=== PATIENT | male | born 1960 | race Caucasian/White ===

== ENCOUNTER 2017-09-25 17:44 | Inpatient (IN) | payer OTHER ==
[~2017-09-25] VITALS: Ht 200.7 cm; Wt 201.4 kg
--- NOTE | ~2017-09-25 | EKG ---
[place] [address] ELECTROCARDIOGRAM REPORT Name: BARNEY JONES Room: [address] IN [facility]#: [id number] Admission: 09/25/17 Attend Phys: Mickey Sepulveda Discharge: 09/27/17 Date of : 64 Report #: [id number] THIS REPORT FOR: //name// [facility] ED Test Date: 2017-09-30 Test Time: 14:40:43 Pat Name: BARNEY JONES Department: Room: [facility] Gender: M Parts Remover: HEBERT : 1960 Requested By: Jos Godinez Order Number: [id number] MD: Measurements Intervals [place] Rate: 158 P: [place]: QRS: 32 QRSD: 84 T: 190 QT: 266 QTc: 432 Interpretive Statements Atrial fibrillation Repolarization abnormality, prob rate related Compared to ECG 09/27/2017 08:06:10 Early repolarization now present T-wave abnormality no longer present Prolonged QT interval no longer present [email or web address] By: 1440 1440 Epiphany Epiphany, /EPI
[2017-09-25 17:47] VITALS: BP 177/129
[2017-09-25 18:03] LABS: ABSOLUTE BASOPHILS 0.1 thou/uL (0.0-0.2); ABSOLUTE LYMPHOCYTES 1.2 thou/uL (0.8-5.3); ABSOLUTE MONOCYTES 0.8 thou/uL (0.0-1.2); ABSOLUTE NEUTROPHILS 6.4 thou/uL (1.6-8.1); BASOPHILS 0.6 %; EOSINOPHILS 0.6 %; HEMATOCRIT 39.1 % (42.0-52.0); HEMOGLOBIN 12.2 gm/dL (14.0-18.0); LYMPHOCYTES 14.3 %; MCH 28.4 pg (26.0-34.0); MCHC 31.2 g/dL (28.0-37.0); MCV 91.1 fL (80.0-100.0); MONOCYTES 8.9 %; MPV 9.7 fl. (7.2-11.1); NUCLEATED RBCS 1 /100WBC; PLATELET COUNT* 240 thou/uL (150-400); POLYS 75.6 %; RBC 4.29 mil/uL (4.50-6.00); RDW-CV 18.4 % (10.5-14.5); WBC 8.5 thou/uL (4.0-11.0)
[2017-09-25 18:11] LABS: APTT 25.2 Seconds (25.0-31.3); INR 1.4; PROTIME 13.7 Seconds (9.20-11.50)
[2017-09-25 18:14] LABS: CALCIUM 8.2 mg/dL (8.5-10.1); POTASSIUM 4.1 mmol/L (3.5-5.1)
[2017-09-25 18:37] LABS: ALBUMIN 3.2 g/dL (3.4-5.0); CK-MB MASS 1.6 ng/mL (<0.5-3.6); MAGNESIUM 1.7 mg/dL (1.8-2.4); TOTAL BILIRUBIN 0.6 mg/dL (<0.1-1.0); TOTAL PROTEIN 7.7 g/dL (6.4-8.2); TROPONIN-I LEVEL 0.07 ng/mL (<0.06)
[2017-09-25 19:25] VITALS: BP 129/80
[2017-09-25 20:15] VITALS: BP 144/78
[2017-09-25 23:41] VITALS: BP 111/76; BP 126/82
[2017-09-26 03:44] VITALS: BP 127/80
[2017-09-26 07:53] VITALS: BP 132/82
[2017-09-26 09:38] LABS: ANION GAP 5 mmol/L (7-16); BUN 23 mg/dL (7-18); CALCIUM 7.8 mg/dL (8.5-10.1); CHLORIDE 101 mmol/L (98-107); CHOLESTEROL 88 mg/dL (<200); CO2 30 mmol/L (21-32); CREATININE 1.7 mg/dL (0.6-1.3); GLUCOSE 97 mg/dL (70-99); HDL CHOLESTEROL 23 mg/dL (>40); LDL CHOLESTEROL 55 mg/dL (<100); MAGNESIUM 1.5 mg/dL (1.8-2.4); POTASSIUM 3.8 mmol/L (3.5-5.1); SODIUM 136 mmol/L (136-145); TC:HDL 3.8 Ratio (Not establshd); TRIGLYCERIDE 53 mg/dL (<150); VLDL 11 mg/dL (<40)
[2017-09-26 09:45] LABS: SERUM ASSESSMENT Clear
[2017-09-26 11:01] LABS: URINE BILIRUBIN NEGATIVE (Negative); URINE BLOOD NEGATIVE (Negative); URINE CLARITY CLEAR; URINE COLOR YELLOW; URINE GLUCOSE-RANDOM NEGATIVE (Negative); URINE KETONES NEGATIVE (Negative); URINE LEUKOCYTES-REFLEX NEGATIVE (Negative); URINE NITRITE-REFLEX NEGATIVE (Negative); URINE PROTEIN TRACE (Negative); URINE SPECIFIC GRAVITY 1.015 (1.005-1.030); URINE UROBILINOGEN 0.2 E.U./dl (0.2-1.0)
--- NOTE | 2017-09-26 11:05 | EKG ---
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 09/26/17 1105 1750 1750 Prince Dela Cruz MD, FACC /EPI
[2017-09-26 11:09] LABS: URINE POTASSIUM-RANDOM 19.2 mmol/L
--- NOTE | 2017-09-26 11:10 | EKG ---
[place] [address] ELECTROCARDIOGRAM REPORT Name: BARNEY JONES Room: [address] ADM IN .R.#: [id number] Admission: 09/25/17 Attend Phys: Mickey Sepulveda Discharge: Date of : 64 Report #: [id number] THIS REPORT FOR: //name// [facility] Test Date: 2017-09-26 Test Time: 00:08:57 Pat Name: BARNEY JONES Department: Room: [address] Gender: M Nurse General Duty: : 1960 Requested By: Hemal Alamo Order Number: [id number] MD: Prince Dela Cruz Measurements Intervals [place] Rate: 90 P: NM: QRS: 63 QRSD: 81 T: 102 QT: 407 QTc: 498 Interpretive Statements Atrial fibrillation Nonspecific T abnormalities, lateral leads Electronically Signed On 09-26-2017 11:10:39 CDT by Prince Dela Cruz [email or web address] <ELECTRONICALLY SIGNED> By: Prince Dela Cruz MD, [facility] 09/26/17 1110 0008 0008 Prince Dela Cruz MD, FACC /EPI
--- NOTE | 2017-09-26 11:13 | EKG ---
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
[2017-09-26 11:29] VITALS: BP 145/94
--- NOTE | 2017-09-26 13:15 | 2DMMODE ---
[place] [address] 2 D/M-MODE ECHOCARDIOGRAM Name: BARNEY JONES Room: [address] IN [facility]#: [id number] Admission: 09/25/17 Attend Phys: Yosef Frances Discharge: Date of : 64 Date of Service: 09/26/17 1315 Report #: [id number] THIS REPORT FOR: //name// APPROVED REPORT Study performed: 09/26/2017 10:54:33 EXAM: Comprehensive 2D, Doppler, and color-flow Echocardiogram Patient Location: In-Patient Room #: [facility] Status: routine BSA: 3.20 HR: 93 bpm BP: 132/82 mmHg Rhythm: Atrial Fibrillation Other Information Technically limited study due to body habitus, poor endocardial definition. Indications Atrial Fibrillation Echo Enhancing Agent Indication: Endocardial border delineation Agent(s) / Amount(s) Used: Optison 3 cc 2D Dimensions LVEF(%): 43.25 (>50%) IVSd: 13.45 (7-11mm) LVOT Diam: 21.86 (18-24mm) LVDd: 60.39 mm PWd: 12.29 (7-11mm) Ascending Ao: 36.53 (22-36mm) LVDs: 47.26 (25-40mm) Aortic Root: 33.16 mm Singer's LVEF: 43.25 % Volumes Left Atrial Volume (Systole) LA ESV Index: 51.70 mL/m2 Aortic Valve AoV Peak Tru.: 1.66 m/s AO Peak Gr.: 11.01 mmHg LVOT Max P.93 mmHg AO Mean Gr.: 6.46 mmHg LVOT Mean P.44 mmHg LVOT Max V: 1.22 m/[place] [address] 2 D/M-MODE ECHOCARDIOGRAM Name: BARNEY JONES Room: [address] IN ..#: [id number] Admission: 09/25/17 Attend Phys: Yosef Frances Discharge: Date of : 64 Date of Service: 09/26/17 1315 Report #: [id number] AO V2 VTI: 24.87 cm LVOT Mean V: 0.87 m/s RADHA (VTI): 2.90 cm2 LVOT V1 VTI: 19.23 cm Mitral Valve MV Decel. Time: 133.19 ms MV PHT: 38.62 ms MVA (PHT): 5.70 cm2 TDI Medial E' Tru.: 0.15 m/s Lateral E' Tru.: 0.14 m/s Pulmonary Valve PV Peak Tru.: 1.10 m/s PV Peak Gr.: 4.84 mmHg Tricuspid Valve RAP Estimate: 5.00 mmHg TR Peak Gr.: 29.98 mmHg RVSP: 34.98 mmHg PA Pressure: 34.98 mmHg Left Ventricle The left ventricle is normal size. There is global hypokinesis of the left ventricle. Mild concentric left ventricular hypertrophy. Left ventricular systolic function is mildly decreased. LVEF is 40-45%. This study is not technically sufficient to allow evaluation of the LV diastolic function due to atrial fibrillation. Right Ventricle The right ventricle is normal size. The right ventricular systolic function is normal. Atria Left atrium is severely dilated. Right atrium is mildly dilated. Aortic Valve The aortic valve is normal in structure. Mild aortic regurgitation. There is no aortic valvular stenosis. Mitral Valve The mitral valve is normal in structure. Mild mitral regurgitation. No evidence of mitral valve stenosis. Tricuspid Valve The tricuspid valve is normal in structure. Mild tricuspid regurgitation. estimated pa pressure 50 [place] [address] 2 D/M-MODE ECHOCARDIOGRAM Name: ROBERTBARNEY Quintana Room: [address] IN [facility]#: [id number] Admission: 09/25/17 Attend Phys: Yosef Frances Discharge: Date of : 64 Date of Service: 09/26/17 1315 Report #: [id number] Pulmonic Valve The pulmonary valve is normal in structure. There is no pulmonic valvular regurgitation. Great Vessels The aortic root is normal in size. IVC is dilated and collapses <50% with inspiration. Pericardium There is no pericardial effusion. <Conclusion> Mild concentric left ventricular hypertrophy. LVEF is 40-45%. Left atrium is severely dilated. Mild aortic regurgitation. Mild mitral regurgitation. Mild tricuspid regurgitation. estimated pa pressure 50 mm Hg <ELECTRONICALLY SIGNED> By: Prince Dela Cruz MD, FACC 09/26/17 1315 14 14 Prince Dela Cruz MD, FACC /INF
[2017-09-26 15:29] VITALS: BP 118/92
--- NOTE | 2017-09-26 17:14 | CON ---
[address] [address] CONSULTATION Name: BARNEY JONES Room: [address] IN .R.#: [id number] Admission: 09/25/17 Attend Phys: Mickey Sepulveda Discharge: Date of : 64 Report #: [id number] THIS REPORT FOR: //name// CC: MARBIN physician/PCP Yosef Frances DATE OF SERVICE: 09/26/2017 HISTORY OF PRESENT ILLNESS: The patient is a 57-year-old single white male who I was asked to see in the hospital today after he was noted to be in atrial fibrillation. The history was obtained from the patient. There were no old records available. The patient previously went to [facility], but has not been there for years. He has a history of hypertension, but ran out of his lisinopril several years ago. He is not very active because of his large size. He is 6 feet 7 inches, weighs 445 pounds. 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 He is not working at this time. He was doing well until the past few days, he has felt somewhat lightheaded. He has had worsening edema and shortness of breath. He notes yesterday he felt some heaviness in his chest. There was no radiation of the pain. He felt short of breath and diaphoretic, but no nausea. He has been coughing. He has had worsening edema. He did note his heart beating irregular. He finally came to the emergency room last night. He was noted to be in atrial fibrillation. He was started on IV Cardizem. I was asked to see him for further evaluation and treatment. He has had no syncope. PAST MEDICAL HISTORY: He has had no major surgical procedures. He has no history of diabetes or hyperlipidemia. MEDICATIONS: He is currently on no medications. ALLERGIES: He has no known drug allergies. FAMILY HISTORY: Heart disease runs in the family. SOCIAL HISTORY: He is in the past, but he is currently , he does have 5 children, lives in [place], [place] with some friends. He unfortunately has no medical insurance. He does not smoke cigarettes, rarely drinks alcohol. He does smoke marijuana occasionally. REVIEW OF SYSTEMS: He has had no history of stroke. He does snore at night and has daytime somnolence. He has no history of peptic ulcer disease, liver disease, kidney disease, cancer, or chronic skin condition. He does wear glasses. He has a history of depression and suicide attempt in the past. PHYSICAL EXAMINATION: GENERAL: Revealed a large middle-aged male, [place] [address] CONSULTATION Name: BARNEY JONES Room: [address] IN .R.#: [id number] Admission: 09/25/17 Attend Phys: Mickey Sepulveda Discharge: Date of : 64 Report #: [id number] VITAL SIGNS: He had a blood pressure of 130/80, pulse is 110, he is afebrile, respirations are unlabored. HEENT: He is anicteric. Conjunctivae are pink. Mucous members moist. NECK: Veins difficult to assess due to obesity. CHEST: Clear to auscultation. HEART: Irregular rhythm. No rub or murmur. ABDOMEN: Obese. EXTREMITIES: Had pitting edema to the mid tibial area. Dorsalis pedis pulse cannot be palpated. SKIN: Cool and dry. NEUROLOGIC: Nonfocal. His ECG showed an atrial fibrillation with a rapid ventricular response, nonspecific ST-segment changes. On the monitor last night, he did have a 9 beat run of a wide complex tachycardia suggesting aberrant conduction. His x-rays, he had a portable chest x-ray that showed cardiomegaly, tortuous aorta. His lab work, sodium 138, BUN 27, creatinine was 2. His liver function studies were normal. Troponin 0.07. BNP 5975. White blood cell count 8.5 and hemoglobin 12.2. IMPRESSION AND RECOMMENDATIONS: 1. Atrial fibrillation. I would aim for rate control, diltiazem and a beta evens. I would not recommend attempts at cardioversion. I would consider anticoagulation. 2. Hypertension. I would recommend a beta evens. 3. Morbid obesity. 4. Sleep apnea. 5. Chronic kidney disease. 6. History of depression. <ELECTRONICALLY SIGNED> By: Prince Dela Cruz MD, [facility] 09/26/17 1714 0911 0952Daaspne Dela Cruz MD, FAC /nt
[2017-09-26 19:30] VITALS: BP 145/86
[2017-09-27] VITALS: BP 118/72
[2017-09-27 02:06] LABS: GLYCOHEMOGLOBIN (HGB A1C) 5.4 % (4.8-5.6)
[2017-09-27 04:00] VITALS: BP 122/72
[2017-09-27 07:37] LABS: CALCIUM 7.8 mg/dL (8.5-10.1); CREATININE 1.4 mg/dL (0.6-1.3); MAGNESIUM 1.6 mg/dL (1.8-2.4); POTASSIUM 4.6 mmol/L (3.5-5.1)
[2017-09-27 08:15] VITALS: BP 106/79
[2017-09-27] MEDS ORDERED: LISINOPRIL5 MG PO (12:02)
[2017-09-27] MEDS ORDERED: LOPRESSOR50 PO (12:02)
[2017-09-27] MEDS ORDERED: ELIQUIS5 MG PO (12:02)
[2017-09-27] MEDS ORDERED: LASIX 40 MG TAB40 M1 PO (12:02)
[2017-09-27] MEDS ORDERED: ASPIR 8181 MG PO (12:03)
--- NOTE | 2017-09-27 12:07 | EKG ---
[place] [address] ELECTROCARDIOGRAM REPORT Name: BARNEY JONES Room: [address] ADM IN M.R.#: [id number] Admission: 09/25/17 Attend Phys: Mickey Sepulveda Discharge: Date of : 64 Report #: [id number] THIS REPORT FOR: //name// [facility] Test Date: 2017-09-27 Test Time: 08:06:10 Pat Name: BARNEY JONES Department: Room: [address] Gender: M Lidder: : 1960 Requested By: Prince Dela Cruz Order Number: [id number] Reading MD: Stanley Mai Measurements Intervals [place] Rate: 86 P: [place]: QRS: 40 QRSD: 94 T: QT: 427 QTc: 511 Interpretive Statements Atrial fibrillation Low voltage, precordial leads Nonspecific T abnormalities, lateral leads Prolonged QT interval Compared to ECG 09/26/2017 06:58:54 Low QRS voltage now present Myocardial infarct finding no longer present T-wave abnormality still present Electronically Signed On 09-27-2017 12:07:22 CDT by Stanley Mai [email or web address] <ELECTRONICALLY SIGNED> By: Stanley Mai MD, FAC 09/27/17 1207 0806 0806 Stanley Mai MD, [facility] /EPI
[2017-09-27 12:13] VITALS: BP 132/89
[2017-09-27 14:29] VITALS: BP 132/89
== END 2017-09-27 15:57 | disposition home or self-care (01) | DRG 291 ==
LOC: M.ERS 17:44 → M.2W 18:22 → M.TBA-ER 18:22 → M.2W 20:15
PROVIDERS: Family Medicine; Internal Medicine; ADMIT Internal Medicine
DX: I13.0 Hypertensive heart and chronic kidney disease with heart failure and stage 1 through stage 4 chronic kidney disease, or unspecified chronic kidney disease (principal); I50.43 Acute on chronic combined systolic (congestive) and diastolic (congestive) heart failure; Z68.43 Body mass index [BMI] 50.0-59.9, adult; I48.91 Unspecified atrial fibrillation; I70.0 Atherosclerosis of aorta; F32.9 Major depressive disorder, single episode, unspecified; I25.10 Atherosclerotic heart disease of native coronary artery without angina pectoris; G47.33 Obstructive sleep apnea (adult) (pediatric); I73.9 Peripheral vascular disease, unspecified; E88.81 Metabolic syndrome and other insulin resistance; N18.3 Chronic kidney disease, stage 3 (moderate); E66.01 Morbid (severe) obesity due to excess calories; I25.2 Old myocardial infarction; Z79.01 Long term (current) use of anticoagulants; Z79.899 Other long term (current) drug therapy; Z82.49 Family history of ischemic heart disease and other diseases of the circulatory system

== ENCOUNTER 2017-09-30 14:36 | Inpatient (IN) | payer OTHER ==
[~2017-09-30] VITALS: Ht 200.7 cm; Wt 200.9 kg
[~2017-09-30 14:36] MED LIST: ASPIR 8181 MG PO; ELIQUIS5 MG PO; LASIX 40 MG TAB40 M1 PO; LISINOPRIL5 MG PO; LOPRESSOR50 PO
[2017-09-30 15:00] LABS: HEMOGLOBIN 11.6 gm/dL (14.0-18.0); MCH 29.1 pg (26.0-34.0); MCHC 32.3 g/dL (28.0-37.0); MPV 9.2 fl. (7.2-11.1); NUCLEATED RBCS 0 /100WBC; PLATELET COUNT* 200 thou/uL (150-400); RDW-CV 18.5 % (10.5-14.5)
[2017-09-30 15:11] LABS: INR 1.2; PROTIME 11.4 Seconds (9.20-11.50)
[2017-09-30 15:12] LABS: ANION GAP 5 mmol/L (7-16); BUN 14 mg/dL (7-18); CALCIUM 7.7 mg/dL (8.5-10.1); CHLORIDE 101 mmol/L (98-107); CO2 36 mmol/L (21-32); CREATININE 1.4 mg/dL (0.6-1.3); GLUCOSE 143 mg/dL (70-99); POTASSIUM 3.4 mmol/L (3.5-5.1); SODIUM 142 mmol/L (136-145)
[2017-09-30 15:28] LABS: ALBUMIN 3.1 g/dL (3.4-5.0); ALKALINE PHOSPHATASE 95 U/L (46-116); LIPASE 75 U/L (73-393); NT-PRO BRAIN NAT PEPTIDE 9223 pg/mL (<300); SGOT 24 U/L (15-37); SGPT 33 U/L (30-65); TOTAL BILIRUBIN 0.6 mg/dL (<0.1-1.0); TOTAL PROTEIN 7.4 g/dL (6.4-8.2); TROPONIN-I LEVEL <0.06 ng/mL (<0.06)
[2017-09-30 15:38] LABS: ABSOLUTE EOSINOPHILS 0.1 thou/uL (0.0-0.7); ABSOLUTE LYMPHOCYTES 0.4 thou/uL (0.8-5.3); ABSOLUTE MONOCYTES 0.3 thou/uL (0.0-1.2); ABSOLUTE NEUTROPHILS 6.3 thou/uL (1.6-8.1)
[2017-09-30 15:39] LABS: ANISOCYTOSIS 1+; PLATELET ESTIMATE ADEQUATE
[2017-09-30 18:41] VITALS: BP 166/125
--- NOTE | 2017-09-30 18:44 | NUR ---
GOT REPORT FROM CRISTINA BLOCK IN ED. PT TO BE TRANSFERED UP TO 203. WILL SETTLE PT WHEN HE ARRIVES.
[2017-09-30 18:57] VITALS: BP 144/111
--- NOTE | 2017-09-30 19:09 | NUR ---
PT ARRIVED ON UNIT, VS CHARTED, PT PROVIDED WITH URINAL, FALL CONTRACT SIGNED AND PT TOLD TO CALL OUT FOR AMBULATION NEEDS. CARDIZEM RUNNING AT 15MG/HR. WILL GIVE REPORT TO NOC SHIFT
[2017-09-30 20:58] VITALS: BP 143/61
[2017-10-01] VITALS: BP 128/86
--- NOTE | 2017-10-01 02:23 | NUR ---
ASSUMED CARE OF PT AT 1900. PT IS ALERT AND ORIENED. VSS. NO COMPLAINTS OF PAIN. PT IS UP AT JOSY. PT REMAINS IN A FIB WITH A RATE OF 80 TO 100. PT IS ON 20MG/HR OF CARDIZEM. PT IS SLEEPING QUIETLY IN BED. RESPIRATIONS ARE EVEN AND NONLABORED. WILL CONTINUE TO MONITOR PT.
[2017-10-01 03:55] VITALS: BP 183/106
[2017-10-01 08:00] VITALS: BP 102/65
--- NOTE | 2017-10-01 10:45 | NUR ---
ASSUMED CARE OF PT AT 0730. PT REMAINS A&O CALM AND COOPERATIVE. PT VSS AND TRACING A FIB ON THE MONITOR. PT HAS NO C/O PAIN OR DISTRESS AND IS UP AD JOSY IN HIS ROOM VOIDING PER THE TOILET. CARDIZEM DRIP RUNNING AT 20/HR. PT CURRENTLY RESTING IN BED WATCHING TV. NURSIGN WILL CONTINUE TO MONITOR.
[2017-10-01 11:10] VITALS: BP 104/57
--- NOTE | 2017-10-01 15:32 | NUR ---
PT SWITCHED FROM IV TO PO CARDIZEM. PT HAS NO C/O PAIN OR DISCOMFORT AT THIS TIME.
[2017-10-01 15:37] VITALS: BP 123/66
--- NOTE | 2017-10-01 15:53 | NUR ---
Pt is A&O. Resides at home with a friend. Independent with ADLs. No DME. No hx of HH or SNF. Pt recently dc on 09/26/17. Pt states that he thinks he will dc with MAEGAN Zaidi to provide Dyan copay card (30 days free). Following through dc
--- NOTE | 2017-10-01 16:29 | NUR ---
RECEIVED REPORT FROM WILMER AND ASSUMED CARE OF PT @ 1600.THIS NURSE ASSESSED PT AND REVIEWED CHARTING AND AGREES WITH PREVIOUS NURSE.PT LEFT RESTING IN BED WITH CALL LIGHT WITHIN REACH.WILL CONTINUE TO MONITOR.
--- NOTE | 2017-10-01 18:19 | NUR ---
VSS,CARDIAC MONITORING IN PLACE WITH NO CHANGES.REMAINS ON 1-2L O2 NC.PT PROGRESSING TOWARDS GOALS.NO C/O PAIN.IV PATENT AND SALINE LOCKED.PT INFORMED OF PLAN OF CARE AND COMMUNICATES UNDERSTANDING.PT AMBULATES IN ROOM.HOURLY ROUNDING COMPLETED FOR PT SAFETY.CALL LIGHT WITHIN REACH.WILL CONTINUE TO MONITOR FOR DURAITON OF SHIFT.
[2017-10-01 19:30] VITALS: BP 133/76
[2017-10-02] VITALS: BP 129/66
--- NOTE | 2017-10-02 00:33 | NUR ---
ASSUMED CARE OF PT AT 1900. PT IS ALERT AND OREINTED. VSS. PERRLA. NO COMPLAINTS OF PAIN. PT IS IN A FIB ON THE TELEMETRY. HEART RATE GET UP TO THE 160'S WHEN HE GETS OUT OF BED. PT IS SLEEPING QUIETLY IN BED. RESPIRATIONS ARE EVEN AND NONLABORED. WILL CONTINUE TO MONITOR PT.
[2017-10-02 04:00] VITALS: BP 158/80
[2017-10-02 05:42] LABS: ABSOLUTE EOSINOPHILS 0.1 thou/uL (0.0-0.7); ABSOLUTE LYMPHOCYTES 0.7 thou/uL (0.8-5.3); ABSOLUTE MONOCYTES 0.5 thou/uL (0.0-1.2); ABSOLUTE NEUTROPHILS 4.5 thou/uL (1.6-8.1); BASOPHILS 0.5 %; EOSINOPHILS 2.5 %; HEMATOCRIT 34.2 % (42.0-52.0); HEMOGLOBIN 10.9 gm/dL (14.0-18.0); LYMPHOCYTES 11.6 %; MCHC 31.9 g/dL (28.0-37.0); MCV 90.9 fL (80.0-100.0); MONOCYTES 8.2 %; MPV 9.9 fl. (7.2-11.1); NUCLEATED RBCS 0 /100WBC; PLATELET COUNT* 183 thou/uL (150-400); POLYS 77.2 %; RBC 3.77 mil/uL (4.50-6.00); RDW-CV 18.2 % (10.5-14.5); WBC 5.8 thou/uL (4.0-11.0)
[2017-10-02 05:52] LABS: ALBUMIN 3.1 g/dL (3.4-5.0); CALCIUM 7.7 mg/dL (8.5-10.1); CREATININE 1.3 mg/dL (0.6-1.3); POTASSIUM 3.4 mmol/L (3.5-5.1); TOTAL BILIRUBIN 0.5 mg/dL (<0.1-1.0); TOTAL PROTEIN 7.1 g/dL (6.4-8.2)
[2017-10-02 07:53] VITALS: BP 139/90
--- NOTE | 2017-10-02 08:00 | NUR ---
RECIEVED REPORT. ASSUMED CARE OF PT AT 0730. VSS. CARDIAC MONITORING IN PLACE AFIB. AM ASSESSMENT AND VITALS COMPELTED CHARTED. PT ALERT AND ORIETNED X4. PT TITRATED TO RA WITH O2 STAT AT 97% IV SALINELOCKED. PT DENIES ANY COMPLAINTS OF PAIN OR DISCOMFORT. PT IS UP AD JOSY. NOTED EDEMA TO BILATERAL LE. CALL LIGHT IS WITHIN REACH. WILL CONTINUE TO MONITOR FOR DURATION OF SHIFT.
--- NOTE | 2017-10-02 11:17 | NUR ---
RE: CHF MEDICATION EDUCATION. SPOKE WITH PT REGARDING CHF MEDICATION. DISCUSSION FOCUSED PRIMARILY ON FUROSEMIDE & METOPROLOL. REVIEWED RATIONALE FOR THERAPY & IMPORTANCE OF COMPLYING WITH PRECRIBED REGIMEN. REVIEWED POSSIBLE SIDE EFFECTS AND MANAGEMENT OF RISKS. PT EXPRESSED UNDERSTANDING OF TOPICS DISCUSSED. LEFT MEDICATION INFORMATION HANDOUT WITH PT & PROVIDED PHARMACY CONTACT INFORMATION FOR ANY FURTHER QUESTIONS OR ISSUES. THANK YOU.
[2017-10-02 11:39] VITALS: BP 106/73; BP 111/79
[2017-10-02] MEDS ORDERED: ELIQUIS5 MG PO (15:10)
[2017-10-02] MEDS ORDERED: CARDIZEM CD240 MG PO (15:19)
--- NOTE | 2017-10-02 15:50 | NUR ---
DISCHARGE ORDERS RECIEVED AND PREPARED. IV AND CARDIAC MONITORING DISCONTINUED. PT EDUCATED ON DISCHARGE INSTRUCTIONS. PT COMMUNICATES UNDERSTANDING. PT GIVEN COPY OF DISCHARGE PAPERWORK AND SCRIPTS. PT'S PERSONAL BELONIGNGS GATHERED AND SENT HOME WITH PT. PT ESCORTED OFF UNIT WITH NURSING STAFF. PT LEFT IN PRIVATE VEHICLE.
[2017-10-02 15:58] VITALS: BP 150/80
--- NOTE | 2017-10-14 11:12 | EKG ---
[place] [address] ELECTROCARDIOGRAM REPORT Name: BARNEY JONES Room: [address]#: [id number] Admission: 09/30/17 Attend Phys: Lona Abernathy Discharge: 10/02/17 Date of : 64 Report #: [id number] THIS REPORT FOR: //name// Atrial fibrillation Repolarization abnormality, prob rate related Compared to ECG 09/27/2017 08:06:10 Early repolarization now present T-wave abnormality no longer present Prolonged QT interval no longer present Electronically Signed On 10-02-2017 17:27:59 CDT by Stanley Mai By: 1727 1108 Stanley Mai MD, FACC /JW
== END 2017-10-02 16:03 | disposition home or self-care (01) | DRG 308 ==
LOC: M.ERS 14:36 → M.2W 15:10 → M.TBA-ER 15:10 → M.2W 18:52
PROVIDERS: Emergency Medicine; Internal Medicine; ADMIT Internal Medicine
DX: I48.91 Unspecified atrial fibrillation (principal); I50.33 Acute on chronic diastolic (congestive) heart failure; Z68.42 Body mass index [BMI] 45.0-49.9, adult; I13.0 Hypertensive heart and chronic kidney disease with heart failure and stage 1 through stage 4 chronic kidney disease, or unspecified chronic kidney disease; F19.10 Other psychoactive substance abuse, uncomplicated; E66.01 Morbid (severe) obesity due to excess calories; N18.9 Chronic kidney disease, unspecified; G47.33 Obstructive sleep apnea (adult) (pediatric); Z79.82 Long term (current) use of aspirin; Z79.899 Other long term (current) drug therapy; Z82.49 Family history of ischemic heart disease and other diseases of the circulatory system

== ENCOUNTER 2017-11-03 22:33 | Inpatient (IN) | payer OTHER ==
[~2017-11-03] VITALS: Ht 200.7 cm; Wt 206.1 kg
[~2017-11-03 22:33] MED LIST changes: +CARDIZEM CD240 MG PO
[2017-11-03 22:44] VITALS: BP 158/123
[2017-11-03] MEDS ORDERED: ASPIRIN325 PO (23:33)
[2017-11-03] MEDS ORDERED: LOPRESSOR100 M1 PO (23:34)
[2017-11-03] MEDS ORDERED: LASIX 80 MG TAB80 MG PO (23:34)
[2017-11-03] MEDS ORDERED: ELIQUIS5 MG PO (23:34)
[2017-11-03] MEDS ORDERED: CARTIA XT240 M1 PO (23:35)
[2017-11-03] MEDS ORDERED: LISINOPRIL5 MG PO (23:35)
[2017-11-03 23:37] LABS: HEMATOCRIT 36.4 % (42.0-52.0); HEMOGLOBIN 11.6 gm/dL (14.0-18.0); MCHC 31.9 g/dL (28.0-37.0); MCV 90.9 fL (80.0-100.0); NUCLEATED RBCS 0 /100WBC; PLATELET COUNT* 215 thou/uL (150-400); RBC 4.01 mil/uL (4.50-6.00); RDW-CV 17.8 % (10.5-14.5); WBC 7.1 thou/uL (4.0-11.0)
[2017-11-03 23:41] LABS: ANION GAP 7 mmol/L (7-16); BUN 24 mg/dL (7-18); CALCIUM 7.9 mg/dL (8.5-10.1); CHLORIDE 104 mmol/L (98-107); CO2 27 mmol/L (21-32); CREATININE 1.8 mg/dL (0.6-1.3); GLUCOSE 111 mg/dL (70-99); POTASSIUM 4.5 mmol/L (3.5-5.1); SODIUM 138 mmol/L (136-145)
[2017-11-03 23:47] LABS: APTT 24.8 Seconds (25.0-31.3); INR 1.1; PROTIME 11.3 Seconds (9.20-11.50)
[2017-11-03 23:56] LABS: BE -0.2 mmol/L (-2 to +3); HCO3 25.5 mmol/L (22.0-26.0); PCO2 45.6 mmHg (35.0-45.0); PO2 105.3 mmHg (75.0-100.0); pH 7.365 (7.340-7.450)
[2017-11-03 23:57] LABS: ALBUMIN 3.2 g/dL (3.4-5.0); ALKALINE PHOSPHATASE 108 U/L (46-116); LIPASE 148 U/L (73-393); NT-PRO BRAIN NAT PEPTIDE 6925 pg/mL (<300); SGOT 19 U/L (15-37); SGPT 18 U/L (30-65); TOTAL BILIRUBIN 0.4 mg/dL (<0.1-1.0); TOTAL PROTEIN 7.6 g/dL (6.4-8.2); TROPONIN-I LEVEL <0.06 ng/mL (<0.06)
[2017-11-04] VITALS (7 sets, daily range): BP systolic 117–165; BP diastolic 66–106
[2017-11-04 01:34] LABS: ABSOLUTE EOSINOPHILS 0.1 thou/uL (0.0-0.7); ABSOLUTE LYMPHOCYTES 0.8 thou/uL (0.8-5.3); ABSOLUTE MONOCYTES 0.6 thou/uL (0.0-1.2); ABSOLUTE NEUTROPHILS 5.7 thou/uL (1.6-8.1); ANISOCYTOSIS 1+; PLATELET ESTIMATE ADEQUATE; POLYCHROMASIA 1+
--- NOTE | 2017-11-04 05:50 | NUR ---
PT WAS ADMITTED TO ROOM 224 DURING THIS SHIFT; VSS, A+OX4, 2LO2 NC, CARDIZEM DRIP RUNNING- ATRIAL FIB. AND BILATERAL LE WOUNDS. HE IS ABLE TO COMMUNICATE HIS NEEDS TO STAFF EFFECTIVELY. HE HAS DENIED THE NEED FOR PAIN MEDICATION UP TO THIS TIME. HE HAS BEEN NPO SINCE MIDNIGHT FOR A CARDIOLOGY CONSULT LATER TODAY.
[2017-11-04 08:39] LABS: CALCIUM 7.9 mg/dL (8.5-10.1); CREATININE 1.4 mg/dL (0.6-1.3); MAGNESIUM 1.7 mg/dL (1.8-2.4); POTASSIUM 5.3 mmol/L (3.5-5.1)
--- NOTE | 2017-11-04 10:03 | NUR ---
Pt is A&O. Resides at home with his stepdtr and her kids. Known to this CM from previous hospital stay. Pt reports that his [place] MARIA D card should be coming in the mail soon, CM faxed facesheet to gAnieszka at [facility] to check Pt's MARIA D status, waiting update. Pt states that he would like a walker or cane for home use at ok. No current DME. No hx of HH or SNF. Goal is to return home at ok. Following.
--- NOTE | 2017-11-04 12:07 | NUR ---
Nutrition: Consult received for poor appetite. Pt stated he has early satiety and doesn't know why - he will ask the doctor about this. He stated he has lost 30# recently. RD saw pt last month and educated on wt loss diet, adding F/V, plate method. Pt stated he has added F/V, cut out salt and soda, and is cooking at home (or daughter helps cook). He is happy with the wt loss and plans on more. Current wt is 430# per pt. He will have Na and fluid restriction once diet advances. RX: vanc, aspirin, lasix. BLE wounds. Admitted for afib. K+ 5.3, albumin 3.2. Mild risk. Obeisty class III R/T lifestyle AEB BMI >50. GOALS: continued wt loss over time, low salt diet.
--- NOTE | 2017-11-04 14:19 | EKG ---
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 11/04/17 1419 2257 2257 Prince Dela Cruz MD, [facility] /EPI
--- NOTE | 2017-11-04 15:58 | NUR ---
WOUND CARE NOTE: CONSULT RECEIVED FOR BILAT LOWER EXT WOUNDS. PATIENT PRESENTS WITH WHAT APPEARS TO BE LOWER EXTREMITY CELLULITIS. ALSO BELIEVE THIS MAY BE COMPLICATED BY VASCULAR DISEASE. MULTIPLE AREAS OF PARTIAL THICKNESS BREAKDOWN TO LOWER EXTREMITIES. 3+ PITTING EDEMA, ERYTHEMA TO GAITER AREA, BUT NOT HOT TO TOUCH. PATIENT STATES THEY WERE HOT LAST NIGHT. APLE TO DOPPLE BILATERAL PEDAL PULSES. APPLIED LOTION TO LOWER EXTREMITIES. APPLIED KERLIX THEN BRENT WRAP FOR LIGHT COMPRESSION. EDUCATED PATIENT ON COMPRESSION THERAPY AND ABOUT MOST LIKELY INCREASING THE AMOUNT OF COMPRESSION OVER THE NEXT FEW DAYS, COMMUNICATED UNDERSTANDING. EDUCATED PATIENT ON KEEPING LEGS ELEVATED TO ASSIST WITH DECREASING HIS SWELLING, COMMUNICATED UNDERSTANDING AND PLACED THE FEET OF HIS BED UP HIGHER. EDUCATED PATIENT THAT IF THE WRAPS FELT TOO TIGHT TO NOTIFY HIS RN, COMMUNICATED UNDERSTANDING. RECOMMEND ELEVATE BLE ENCOURAGE GOOD NUTRTION FOLLOW UP IN LYMPHEDEMA THERAPY FOR COMPRESSION GARMET SIZING IF PATIENT CAN TOLERATE, WOULD RECOMMEND INCREASING COMPRESSION STRENGTH.
[2017-11-05] VITALS (7 sets, daily range): BP systolic 123–165; BP diastolic 67–91
[2017-11-05 02:42] LABS: CALCIUM 8.8 mg/dL (8.5-10.1); CREATININE 1.6 mg/dL (0.6-1.3); MAGNESIUM 1.8 mg/dL (1.8-2.4); POTASSIUM 5.1 mmol/L (3.5-5.1)
--- NOTE | 2017-11-05 03:21 | NUR ---
PATIENT RESTED IN BED, NO ACUTE CHANGES. PATIENT DID NOT SHOW SIGNS OF DISTRESS. FALL PRECAUTONS IN PLACE, CALL LIGHT WITH IN REACH, HOURLY ROUNDING OBSERVED.
--- NOTE | 2017-11-05 10:55 | NUR ---
ASSUMED CARE OF PT AT 0730. PT RESTING IN BED. PT A&0X4, SLEEPY. DENIES ANY PAIN OR SHORTNESS OF BREATH AT THIS TIME. PT IN CONTACT ISOLATION-RULING OUT MRSA. NASAL SWAB PENDING. PT TRACING AFIB ON THE SIDER MECHANIC. RATE IN THE LOW 100'S THIS AM BEFORE AM MEDICATIONS. POST AM MEDICATIONS- PULSE IN THE 80'S. PT ON 3L NC SAT 95%. PT DENIES ANY SHORTNESS OF BREATH. PT UP SBA TO BATHROOM. PT GOAL FOR TODAY IS IV ANTIBIOTICS, IV LASIX AND INCREASE ACTIVITY. AM ASSESSMENT CHARTED. MEDICATIONS PER APR. PT REPOSITIONS SELF WITH REMINDERS. HOURLY ROUNDING OBSERVED. BED IN LOW POSITION. BED ALARM IN PLACE. FALL PRECAUTIONS IN PLACE. CALL LIGHT WITHIN REACH. WILL CONTINUE PLAN OF CARE.
--- NOTE | 2017-11-05 17:03 | NUR ---
NO ACUTE CHANGES THROUGHOUT SHIFT. REFER TO CHARTING. PT CONTINUES TO TRACE AFIB ON THE INDUSTRIAL SALES REPRESENTATIVE. RATE IN THE 50'S. EVENING DOSE OF DIGOXIN HELD- HEART RATE 51. WILL CONTINUE TO MONITOR CLOSELY. PT SAT UP IN THE CHAIR FOR ALL MEALS TODAY. TOLERATED WELL. PT SLOWLY PROGRESSING TOWARDS GOALS. PT DENIES ANY PAIN OR SHORTNESS OF BREATH THROUGHOUT AFTERNOON. MEDICATIONS PER APR. PT REPOSITIONS SELF. HOURLY ROUNDING OBSERVED. BED IN LOW POSITION. CALL LIGHT WITHIN REACH. WILL CONTINUE PLAN OF CARE.
[2017-11-06 04:00] VITALS: BP 145/75
--- NOTE | 2017-11-06 04:32 | NUR ---
ASSUMED CARE OF PT AFTER REPORT AT 1930. PT A&OX4. VSS. PHYSICAL ASSESSMENT COMPLETED AND CHARTED. PT ON RA WITH 92% O2 SAT. PT TRACING AFIB WITH OCC PVCS ON TELE. PT UP STANDBY ASSIST TO TOILET. PT MRSA RESULT CAME POSITIVE-DR MCGOVERN INFORMED WITH NO NEW ORDER. MAINTAINED ON ISOLATION-CONTACT PRECAUTION OBSERVED. DENIES ANY PAIN OR DISCOMFORT. HOURLY ROUNDING OBSERVED. CALL LIGHT WITHIN REACH. BED IN LOW POSITION.
[2017-11-06 05:21] LABS: HEMATOCRIT 33.3 % (42.0-52.0); HEMOGLOBIN 10.7 gm/dL (14.0-18.0); MCH 29.4 pg (26.0-34.0); MCHC 32.1 g/dL (28.0-37.0); MCV 91.8 fL (80.0-100.0); MPV 10.1 fl. (7.2-11.1); RBC 3.63 mil/uL (4.50-6.00); RDW-CV 18.1 % (10.5-14.5); WBC 5.4 thou/uL (4.0-11.0)
[2017-11-06 05:23] LABS: CALCIUM 8.3 mg/dL (8.5-10.1); CREATININE 1.4 mg/dL (0.6-1.3); MAGNESIUM 1.6 mg/dL (1.8-2.4); POTASSIUM 4.5 mmol/L (3.5-5.1)
[2017-11-06 08:00] VITALS: BP 155/75
[2017-11-06 12:04] VITALS: BP 117/71
[2017-11-06 16:00] VITALS: BP 167/90
--- NOTE | 2017-11-06 18:33 | NUR ---
assumed care of pt at 0740. pt remains A&O X4. pt vss and tracing a fib on the monitor. pt has had no c/o pain or distress today. medications administered per APR. pt has a good appetite and has ate 90% or more of all meals today. pt up with 1 assist to the bathroom. pt c/o left hand pain at IV insertion site, no redness or drainage noted, but there is some trace edema. pt declines to have IV line chaged as long as it is still working. Hourly rounding completed and nursing will continue to monitor.
[2017-11-06 20:00] VITALS: BP 144/91
[2017-11-07] VITALS (7 sets, daily range): BP systolic 147–177; BP diastolic 57–97
[2017-11-07 04:31] LABS: HEMATOCRIT 34.4 % (42.0-52.0); HEMOGLOBIN 10.8 gm/dL (14.0-18.0); MCH 28.7 pg (26.0-34.0); MCHC 31.4 g/dL (28.0-37.0); MCV 91.5 fL (80.0-100.0); RBC 3.76 mil/uL (4.50-6.00); RDW-CV 17.9 % (10.5-14.5); WBC 5.2 thou/uL (4.0-11.0)
[2017-11-07 04:56] LABS: CALCIUM 8.1 mg/dL (8.5-10.1); CREATININE 1.3 mg/dL (0.6-1.3); MAGNESIUM 1.7 mg/dL (1.8-2.4); POTASSIUM 4.9 mmol/L (3.5-5.1)
--- NOTE | 2017-11-07 05:01 | NUR ---
ASSUMED CARE OF PT AFTER REPORT AT 1930. PT A&OX4. VSS. PHYSICAL ASSESSMENT COMPLETED AND CHARTED. PT ON RA WITH 96% O2 SAT. PT TRACING AFIB ON TELE. PT UP STANDBY ASSIST TO TOILET. PT DENIES ANY PAIN OR DISCOMFORT. MAINTAINED ON ISOLATION-CONTACT PREC FOR POSITIVE MRSA. PT RESTED WELL ON BED. HOURLY ROUNDING OBSERVED. HS REST & SAFETY GOALS ACHIEVED. CALL LIGHT WITHIN REACH. BED IN LOW POSITION.
--- NOTE | 2017-11-07 07:56 | CON ---
[address] [address] CONSULTATION Name: BARNEY JONES Room: [address] IN .R.#: [id number] Admission: 11/04/17 Attend Phys: Petra Mac MD Discharge: Date of : 64 Report #: [id number] THIS REPORT FOR: //name// CC: Prince Mac DATE OF SERVICE: 11/06/2017 ATTENDING PHYSICIAN: Dr. Mac. REASON FOR EVALUATION: Bilateral lower extremity inflammatory eruption, likely a component of skin and soft tissue infection with cellulitis. HISTORY OF PRESENT ILLNESS: Chart reviewed, patient examined. This is a 57-year-old with history of morbid obesity, hypertension, cardiomyopathy with congestive heart failure, who frequently has lower extremity edema, although it is not constant. He notes he often elevates his legs. He has not used compression prior to that. Over the course of the last few days, he had increasing redness associated with swelling with pain. He then experienced some weeping of the lower extremities. In addition to that, he had developed some nausea with abdominal related discomfort and chest pain. It is notable he has atrial fibrillation. He has been hospitalized again with a congestive heart failure in the past. He notes he feels somewhat better. They are utilizing some Jurgen wraps to lower extremities, which has improved his edema as well as the supine position. He was started empirically on ceftriaxone and vancomycin. ALLERGIES: None known. CURRENT MEDICATIONS: Include vancomycin, ceftriaxone, apixaban, diltiazem CD, lisinopril, metoprolol, aspirin, furosemide, digoxin, promethazine as needed. PAST MEDICAL HISTORY: As described above, hypertension, history of atrial fibrillation, cardiomyopathy with congestive heart failure, and morbid obesity. SOCIAL HISTORY: Nonsmoker, no ethanol. FAMILY HISTORY: Noncontributory. REVIEW OF SYSTEMS: As above. PHYSICAL EXAMINATION: GENERAL: He is obese. Pleasant, alert, cooperative. VITAL SIGNS: Temperature 98.4, pulse 89, respirations 20, blood pressure 117/71. SKIN: Warm, dry, no rashes. NECK: [place] [address] CONSULTATION Name: BARNEY JONES Room: [address]#: [id number] Admission: 11/04/17 Attend Phys: Petra Mac MD Discharge: Date of : 64 Report #: [id number] LUNGS: Diminished heart sounds. HEART: Irregular. I do not appreciate a murmur. ABDOMEN: Obese, soft, nontender. EXTREMITIES: Bilateral lower extremities have compression dressings on. It is clear there are inflammatory changes noted with some open ulcerations. GENITOURINARY: Deferred. RECTAL: Deferred. LABORATORY DATA: Blood cultures sterile thus far 03/14. CBC: White count of 5.4, H and H 10.7 and 33.3, platelets 173. Electrolytes: Sodium 138, potassium 4.5, chloride 101, bicarbonate is 34, anion gap of 3, BUN and creatinine 20 and 1.4. Estimated GFR 53, positive MRSA PCR. Venous Doppler of lower extremities showed no evidence of DVT. CT abdomen and pelvis revealed cardiomegaly with ground glass opacities. There is question of some pulmonary edema, thus no acute inflammatory process in hemipelvis. Chest x-ray showed marked cardiomegaly, mild pulmonary edema. Lactic acid of 1.0. ASSESSMENT: Bilateral lower extremities inflammatory eruption, probably multifactorial. I think he has got a component of venous stasis insufficiency with dermatitis as well as possible skin and soft tissue infection with cellulitis. Continue empiric therapy. I think compression is a austin. His volume status can be improved. It might be beneficial to maintain him on long-term compressive therapy. We will await culture results. If noted positive methicillin resistant Staphylococcus aureus, would assume that is in play. <ELECTRONICALLY SIGNED> By: Angus Holden MD 11/07/17 0756 [id number] 1929Jobrigette Holden MD /nt
--- NOTE | 2017-11-07 14:15 | NUR ---
CONTINUE TO FOLLOW, MET WITH PT. STATES FEELING SOME BETTER. HE REPORTS THAT HE FILLED OUT A MEDICAID MARIO AND SENT IT IN. STILL AWAITING [facility] TO VERIFY STATUS. PT PLANS TO RETURN HOME WITH DTR AND FAMILY. HE STATES HE WAS ABLE TO FILL HIS MEDS AFTER LAST HOSPITAL STAY AND HAS ELIQUIS AT HOME, WAS GIVEN SAMPLES AND HAS '4MONTHS WORTH.' PT DENIES DC NEEDS.
--- NOTE | 2017-11-07 18:36 | NUR ---
PATINET RESTING IN BED. UP AD JOSY IN ROOM. VOIDS PER BATHROOM. VITAL SIGNS STABLE ANDPATI ET IN NOAPPARENT SIGNS OF DISTRESS AT THIS TIME. HOURLY ROUNDING COMPLETED FOR PATIENT SAFETY. PATINET SANIES PAIN.
[2017-11-08] VITALS: BP 155/95
[2017-11-08 03:41] VITALS: BP 163/95
--- NOTE | 2017-11-08 04:44 | NUR ---
RECEIVED REPORT AND ASSUMED CARE OF PATIENT AT 1930. PLANT ATTENDANT IN PLACE TRACING AFIB, RATE CONTROLLED ON PO CARDIZEM. WOUND CARE PROVIDED TO BILAT LOWER EXT. PATIENT RESTLESS THROUGHOUT SHIFT, DENIES DESIRE FOR SLEEP MEDICATION. PATIENT STATES "HE IS USUALLY UP EVERY COUPLE OF HOURS NIGHTLY." PATIENT DENIES PAIN OR DISCOMFORT. PLACED ON 2L O2 NC FOR O2 SAT OF 89-90%. HOURLY ROUNDING OBSERVED. CALL LIGHT WITHIN REACH
[2017-11-08 06:06] LABS: CALCIUM 8.5 mg/dL (8.5-10.1); CREATININE 1.2 mg/dL (0.6-1.3); POTASSIUM 4.7 mmol/L (3.5-5.1)
[2017-11-08 06:20] LABS: MAGNESIUM 1.8 mg/dL (1.8-2.4)
[2017-11-08 08:00] VITALS: BP 162/91
--- NOTE | 2017-11-08 08:00 | NUR ---
AM ASSESSMENT COMTPLETE, DEFER TO COMPUTER CHARTING. MUSIC SOUND LIGHT TECHNICIAN TRACKING AFIB. ALERT ORIENTED, UP TO BATHROOM WITH SUPERVISION. 02 ON 2L PER NC. DRESSING WITH BRENT WRAP IN PLACE TO BILATERAL LOWER EXTREMITES, REDDNESS AND EDEMA NOTED. DENIES PAIN, DIZZINESS OR ANY DISCOMFORT AT THIS TIME. WILL MONITOR.
--- NOTE | 2017-11-08 11:30 | NUR ---
ORDERS NOTED FOR DC HOME. PT HAS SCRIPT FOR DOXYCYCLINE. PT STATES HE IS NOT ABLE TO AFFORD IT. ARRANGED FOR PT TO GET MED THRU ASSISTANCE PROGRAM AT [facility]. FAXED AND CALLED SCRIPT
[2017-11-08 12:10] VITALS: BP 178/85
[2017-11-08 12:12] VITALS: BP 178/85
[2017-11-08] MEDS ORDERED: DOXYCYCLINE 10100 MG PO (13:15)
--- NOTE | 2017-11-08 14:44 | NUR ---
DISCHARGE ORDERS RECEIVED. CLAIMS VICE PRESIDENT AND SALINE LOCK DC'D. EDUCATED ON DISCHARGE INSTRUCTIONS, VERBALIZED UNDERSTANDING. GIVEN WRITTEN DISCHARGE INSTRUCTIONS FOR REINFORCEMENT TEACHING. PATIENT REFUSING TO LET NURSE OBTAIN PICTURES OF WOUNDS PRIOR TO DISCHARGE. ALL PERSONAL BELONGINGS COLLECTED BY PATIENT. DC'D TO HOME VIA W/C WITH ALL BELONGINGS ACCOMPANIED BY FRIEND.
== END 2017-11-08 14:45 | disposition hospice, home (50) | DRG 872 ==
LOC: M.ERS 22:33 → M.TBA-ER 11-04 00:56 → M.2W 11-04 00:56
PROVIDERS: Internal Medicine; Personal Emergency Response Attendant; ADMIT Internal Medicine
DX: A41.9 Sepsis, unspecified organism (principal); Z68.43 Body mass index [BMI] 50.0-59.9, adult; I13.0 Hypertensive heart and chronic kidney disease with heart failure and stage 1 through stage 4 chronic kidney disease, or unspecified chronic kidney disease; E66.2 Morbid (severe) obesity with alveolar hypoventilation; I42.9 Cardiomyopathy, unspecified; I50.42 Chronic combined systolic (congestive) and diastolic (congestive) heart failure; J96.12 Chronic respiratory failure with hypercapnia; I42.7 Cardiomyopathy due to drug and external agent; L03.818 Cellulitis of other sites; N18.3 Chronic kidney disease, stage 3 (moderate); G47.33 Obstructive sleep apnea (adult) (pediatric); H16.423 Pannus (corneal), bilateral; I48.2 Chronic atrial fibrillation; T43.625A Adverse effect of amphetamines, initial encounter; F15.10 Other stimulant abuse, uncomplicated; B95.62 Methicillin resistant Staphylococcus aureus infection as the cause of diseases classified elsewhere; Z79.899 Other long term (current) drug therapy; Z79.82 Long term (current) use of aspirin; Z82.49 Family history of ischemic heart disease and other diseases of the circulatory system; Z91.14 Patient's other noncompliance with medication regimen; Y92.89 Other specified places as the place of occurrence of the external cause

== ENCOUNTER 2018-03-14 13:50 | Inpatient (IN) | payer OTHER ==
[~2018-03-14] VITALS: Ht 200.7 cm; Wt 166.0 kg
[~2018-03-14 13:50] MED LIST changes: +CARTIA XT240 M1 PO; +DOXYCYCLINE 10100 MG PO; +LASIX 80 MG TAB80 MG PO; +LOPRESSOR100 M1 PO
[2018-03-14 13:53] VITALS: BP 118/89
[2018-03-14] MEDS ORDERED: DIGOXIN250 MCG PO (14:02)
[2018-03-14] MEDS ORDERED: ZAROXOLYN 5MG TA5 MG PO (14:03)
[2018-03-14 14:30] LABS: ABSOLUTE BASOPHILS 0.1 thou/uL (0.0-0.2); ABSOLUTE MONOCYTES 0.6 thou/uL (0.0-1.2); ABSOLUTE NEUTROPHILS 6.8 thou/uL (1.6-8.1); BASOPHILS 0.8 %; EOSINOPHILS 0.5 %; LYMPHOCYTES 11.7 %; MCH 30.9 pg (26.0-34.0); MCHC 32.5 g/dL (28.0-37.0); MPV 10.7 fl. (7.2-11.1); NUCLEATED RBCS 1 /100WBC; PLATELET COUNT* 203 thou/uL (150-400); RBC 3.89 mil/uL (4.50-6.00); RDW-CV 16.3 % (10.5-14.5); WBC 8.5 thou/uL (4.0-11.0)
[2018-03-14 14:39] LABS: ANION GAP 10 mmol/L (7-16); BUN 27 mg/dL (7-18); CALCIUM 8.6 mg/dL (8.5-10.1); CHLORIDE 101 mmol/L (98-107); CO2 25 mmol/L (21-32); CREATININE 1.7 mg/dL (0.6-1.3); GLUCOSE 117 mg/dL (70-99); POTASSIUM 3.7 mmol/L (3.5-5.1); SODIUM 136 mmol/L (136-145)
[2018-03-14 14:49] LABS: ALBUMIN 3.5 g/dL (3.4-5.0); ALKALINE PHOSPHATASE 111 U/L (46-116); LIPASE 102 U/L (73-393); MAGNESIUM 1.8 mg/dL (1.8-2.4); NT-PRO BRAIN NAT PEPTIDE 8953 pg/mL (<300); SGOT 149 U/L (15-37); SGPT 188 U/L (30-65); TOTAL BILIRUBIN 0.9 mg/dL (<0.1-1.0); TOTAL PROTEIN 7.9 g/dL (6.4-8.2); TROPONIN-I LEVEL <0.06 ng/mL (<0.06)
[2018-03-14 17:14] VITALS: BP 158/101
[2018-03-14 18:00] VITALS: BP 130/94
[2018-03-14 18:33] VITALS: BP 151/112
--- NOTE | 2018-03-14 18:42 | NUR ---
PT ADMITTED ON TELE FLOOR AT 1730 ACCOMPANIED BY ER NURSE ON A BED. PT IS AOX4 AFIB HR 130 TRACING ON APPRAISER ART. VSS BESIDE HR. O2 SATURATION IS 97% ON 2 L NC. BED EXTENSION PROVIDED. CALL LIGHT AT REACH. PT ATE DINER. IV CARDIZEM AT 10 PER HOUR INFUSING. IN L AC. IV LINE PATENT. SCDS IN PLACE. ADMISSION ASSESSMENT DONE REFER TO CHART. MEDICINE RESTARTED. HOME MEDICATIONS PLACED IN SECURITY BAG. URINAL PROVIDED. WILL CONTINUE TO MONITOR
[2018-03-14 20:00] VITALS: BP 149/108
[2018-03-14 23:05] LABS: AMP/METHAMP Negative (Negative); BARBITURATES Negative (Negative); BENZODIAZEPINES Negative (Negative); COCAINE Negative (Negative); METHADONE Negative (Negative); OPIATES Negative (Negative); PCP Negative (Negative); THC Negative (Negative)
[2018-03-14 23:10] LABS: URINE BILIRUBIN NEGATIVE (Negative); URINE BLOOD TRACE (Negative); URINE CLARITY CLEAR; URINE COLOR STRAW; URINE GLUCOSE-RANDOM NEGATIVE (Negative); URINE KETONES NEGATIVE (Negative); URINE LEUKOCYTES-REFLEX NEGATIVE (Negative); URINE NITRITE-REFLEX NEGATIVE (Negative); URINE PROTEIN NEGATIVE (Negative); URINE SPECIFIC GRAVITY <= 1.005 (1.005-1.030); URINE UROBILINOGEN 0.2 E.U./dl (0.2-1.0)
[2018-03-15] VITALS: BP 92/68
[2018-03-15 02:15] LABS: ABSOLUTE BASOPHILS 0.1 thou/uL (0.0-0.2); ABSOLUTE EOSINOPHILS 0.1 thou/uL (0.0-0.7); ABSOLUTE LYMPHOCYTES 1.1 thou/uL (0.8-5.3); ABSOLUTE MONOCYTES 0.5 thou/uL (0.0-1.2); ABSOLUTE NEUTROPHILS 5.8 thou/uL (1.6-8.1); BASOPHILS 0.8 %; EOSINOPHILS 0.8 %; HEMATOCRIT 33.8 % (42.0-52.0); LYMPHOCYTES 14.3 %; MCH 31.2 pg (26.0-34.0); MCHC 32.7 g/dL (28.0-37.0); MCV 95.6 fL (80.0-100.0); MONOCYTES 6.9 %; MPV 11.1 fl. (7.2-11.1); NUCLEATED RBCS 1 /100WBC; PLATELET COUNT* 189 thou/uL (150-400); POLYS 77.2 %; RBC 3.54 mil/uL (4.50-6.00); RDW-CV 16.8 % (10.5-14.5); WBC 7.5 thou/uL (4.0-11.0)
[2018-03-15 02:42] LABS: CALCIUM 8.9 mg/dL (8.5-10.1); CREATININE 1.7 mg/dL (0.6-1.3); MAGNESIUM 1.9 mg/dL (1.8-2.4); POTASSIUM 3.6 mmol/L (3.5-5.1)
[2018-03-15 04:00] VITALS: BP 108/75
--- NOTE | 2018-03-15 05:47 | NUR ---
ASSUMED PATIENT AT 1900. PATIENT ALERT AND ORIENTED TIMES FOUR. CARDIZEM ABLE TO BE TURNED OFF THROUGH THE NIGHT. PO CARDIZEM STARTED. PATIENT VERBLIZED UNDERSTANDING OF FLUID RESTRICTION. TYLENOL GIVEN FOR COMLAINT OF A HEADACHE. NO OTHER ISSUES NOTED. PROFESSOR OF BUSINESS ADMINISTRATION AND HOURLY ROUNDING COMPLETED DOCUMENTED. REMAINS AFIB ON THE MONITOR. IV PATENT
[2018-03-15 08:00] VITALS: BP 141/73
[2018-03-15 12:00] VITALS: BP 109/65
--- NOTE | 2018-03-15 12:19 | EKG ---
[place] [address] ELECTROCARDIOGRAM REPORT Name: BARNEY JONES Room: [address] ADM IN [facility].#: [id number] Admission: 03/14/18 Attend Phys: Jesus Andrade MD Discharge: Date of : 64 Report #: [id number] THIS REPORT FOR: //name// [facility] ED Test Date: 2018-03-14 Test Time: 13:53:45 Pat Name: BARNEY JONES Department: Room: [facility] Gender: M Global Human Resources Director: Criselda HOUSE : 1960 Requested By: Sanford Rivera Order Number: [id number] MD: Prince Dela Cruz Measurements Intervals [place] Rate: 184 P: [place]: QRS: 74 QRSD: 87 T: -79 QT: 232 QTc: 406 Interpretive Statements Atrial fibrillation with rapid V-rate Repolarization abnormality, prob rate related Compared to ECG 11/03/2017 22:57:20 No significant changes Electronically Signed On 03-15-2018 12:19:35 SHOP ROUTER by Prince Dela Cruz [email or web address] <ELECTRONICALLY SIGNED> By: Prince Dela Cruz MD, [facility] 03/15/18 1219 1353 1353 Prince Dela Cruz MD, [facility] /EPI
[2018-03-15 16:00] VITALS: BP 101/68
--- NOTE | 2018-03-15 16:14 | NUR ---
ASSUMED PT CARE AT 0700 REPORT RECEIVED FROM NURSE. PT IS AOX4 AFIB ON THE MONITOR HR IN THE 80S. ON RA SATURATION ABOVE 95% PO CARDIZEN GIVEN ALONG WITH OTHER MEDICINES. ELECTROLYTES REPLACED ORDERED. PT IS UP AD JOSY. WILL CONTINUE TO MONITOR.
[2018-03-15 20:00] VITALS: BP 115/75
[2018-03-16] VITALS: BP 92/51
[2018-03-16 04:00] VITALS: BP 98/55
[2018-03-16 05:17] LABS: ALBUMIN 3.3 g/dL (3.4-5.0); CALCIUM 8.8 mg/dL (8.5-10.1); CREATININE 1.9 mg/dL (0.6-1.3); MAGNESIUM 1.7 mg/dL (1.8-2.4); POTASSIUM 3.3 mmol/L (3.5-5.1); TOTAL BILIRUBIN 0.8 mg/dL (<0.1-1.0); TOTAL PROTEIN 7.3 g/dL (6.4-8.2)
[2018-03-16 08:30] VITALS: BP 117/80
--- NOTE | 2018-03-16 11:53 | NUR ---
Pt is A&O. Resides at home with family. Known to this CM from previous hospital stay. Pt does not currently have insurance, during last stay, [facility] was working with Pt to qualify him. CM to contact Agnieszka at [facility] to check on status. Independent. No DME. No hx of HH or SNF. Possible dc to home tomorrow pending cards. Following.
[2018-03-16 12:00] VITALS: BP 113/74
[2018-03-16 16:00] VITALS: BP 127/80
--- NOTE | 2018-03-16 17:00 | NUR ---
PT UP IN ROOM WITH STEADY GAIT. PT REPORTS IMPROVEMENT OF SOA. PT RELUCTANLY ADHERES TO FLUID RESTRICTION. DENIES PAIN
[2018-03-16 19:05] VITALS: BP 104/79
[2018-03-17] VITALS: BP 127/86
--- NOTE | 2018-03-17 03:39 | NUR ---
ASSESSSMENT COMPLETE AT START OF SHIFT. PT TRACING AFIB ON MONITOR, TACHY AT TIMES. PT DENIES SOA,PAIN, CP, N/V/D. VSS. PT UP AD JOSY TO BR, STAEDY GAIT. REFER TO COMPUTER CHARTING FOR FURTHER DETAILS. HOURLY ROUNDING FOR SAFETY. CLWR.
[2018-03-17 04:00] VITALS: BP 94/64
[2018-03-17 06:19] LABS: CALCIUM 8.7 mg/dL (8.5-10.1); CREATININE 1.7 mg/dL (0.6-1.3); MAGNESIUM 1.8 mg/dL (1.8-2.4); POTASSIUM 3.9 mmol/L (3.5-5.1)
[2018-03-17 08:02] VITALS: BP 116/68
[2018-03-17] MEDS ORDERED: ELIQUIS5 MG PO (11:53)
[2018-03-17] MEDS ORDERED: LOPRESSOR100 M1 PO (11:53)
[2018-03-17] MEDS ORDERED: ESCITALOPRAM OX10 MG PO (11:54)
[2018-03-17] MEDS ORDERED: PRINIVIL20 MG PO (11:54)
[2018-03-17] MEDS ORDERED: DEMADEX20 MG PO (11:55)
[2018-03-17] MEDS ORDERED: LIPITOR 20 MG T20 M1 PO (11:56)
[2018-03-17] MEDS ORDERED: POTASSIUM20 PO (11:56)
[2018-03-17 12:10] LABS: HEPATITIS B SURFACE AG Negative (Negative)
[2018-03-17] MEDS ORDERED: ASPIRIN325 PO (12:33)
[2018-03-17 12:35] VITALS: BP 116/68
--- NOTE | 2018-03-17 12:58 | NUR ---
PATIENT READY TO GO HOME. D/C ORDERS IN COMPUTER. DISCHARGE PAPERWORK COMPLETED. D/C IV, ALL BELONINGS PACKED AND PATIENT WILL GO BY WHEELCHAIR TO CAR WITH FRIEND.
--- NOTE | 2018-03-17 13:15 | NUR ---
ALL PRESRPTIONS TAKEN WITH PATIENT
--- NOTE | 2018-03-18 12:35 | CON ---
[address] [address] CONSULTATION Name: BARNEY JONES Room: [address] IN ..#: [id number] Admission: 03/14/18 Attend Phys: Jesus Andrade MD Discharge: 03/17/18 Date of : 64 Report #: [id number] THIS REPORT FOR: //name// CC: MARBIN physician/PCP Patient's Chart Jesus Andrade DATE OF SERVICE: 03/15/2018 HISTORY OF PRESENT ILLNESS: The patient is a 57-year-old single white male who I was asked to see in the hospital today after he was noted to be in atrial fibrillation. The patient initially presented last September with atrial fibrillation. He has a long history of hypertension. He is not very active because of his large size. He is currently 6 feet 7 inches and weighs 385 pounds. He notes in the past he weighed 425 pounds. When he presented last September, he felt lightheaded, short of breath, some chest heaviness. He was found to be in atrial fibrillation. At that time, he was not on any medications. He had an echocardiogram showing ejection fraction 40%. Rate control was recommended rather than attempt at cardioversion. He was discharged on metoprolol, lisinopril, furosemide, Eliquis. He returned to see my nurse practitioner recently. Unfortunately, he has no medical insurance, ran out of all his medications. He has not been taking any medication for the past week. He came to the Emergency Room last night by private vehicle complaining of intermittent chest discomfort, some left arm pain, felt diaphoretic, short of breath. He denied the chest pain being related to food. He has had no bleeding. Denied any cough. He has had some edema. Denied any palpitation or syncope. PAST MEDICAL HISTORY: Otherwise, he has had previous knee surgery. He does have a history of hypertension. He is currently not taking any medications. ALLERGIES: He has no known drug allergies. FAMILY HISTORY: His father had hypertension. SOCIAL HISTORY: from his . 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 He has no medical insurance. No smoking, no alcohol abuse. 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 REVIEW OF SYSTEMS: He denies snoring, no history of peptic ulcer disease, liver disease, kidney disease, cancer, psychiatric illness, chronic skin conditions. PHYSICAL EXAMINATION: GENERAL: Revealed a large white male who appeared in no distress. VITAL SIGNS: He had a blood pressure of 140/70, pulse 70, [place] [address] CONSULTATION Name: BARNEY JONES Room: [address]#: [id number] Admission: 03/14/18 Attend Phys: Jesus Andrade MD Discharge: 03/17/18 Date of : 64 Report #: [id number] HEENT: He is anicteric. Conjunctivae pink. Mucous members appear moist. NECK: Veins difficult to assess due to obesity. Neck supple. CHEST: Clear to auscultation. CARDIOVASCULAR: Irregular rhythm. ABDOMEN: Obese. EXTREMITIES: Had 1+ edema. SKIN: Cool and dry. NEUROLOGIC: Nonfocal. RADIOLOGICAL DATA: His ECG showed atrial fibrillation, rapid ventricular response rate, nonspecific ST and T wave changes. His x-ray in the Emergency Room last night, he had cardiomegaly, bilateral pulmonary edema. LABORATORY DATA: Sodium 136, BUN 27, creatinine 1.7, it has been as high as 2.0 in the past. Glucose 95, SGPT 188, SGOT 149, bilirubin 0.9. His alkaline phosphatase 111. Troponin 0.06. BNP 8953. TSH last September 4.8. White blood cell count 7.5, hemoglobin 11, it was 10.9 last September. IMPRESSION AND RECOMMENDATIONS: 1. Atrial fibrillation. The patient stopped taking his beta evens and digoxin. I would recommend starting him back on a beta evens. I will consider anticoagulation. 2. Cardiomyopathy. The patient has been on a beta evens in the past. I would recommend Lasix. 3. Previous history of IV drug abuse. 4. Morbid obesity. <ELECTRONICALLY SIGNED> By: Prince Dela Cruz MD, [facility] 03/18/18 1235 0921 [id number] Dela Cruz MD, FAC /nt
== END 2018-03-17 13:15 | disposition home or self-care (01) | DRG 291 ==
LOC: M.ERS 13:50 → M.TBA-ER 15:15 → M.2W 15:15
PROVIDERS: Emergency Medicine Emergency Medical Services; ADMIT Family Medicine
DX: I13.0 Hypertensive heart and chronic kidney disease with heart failure and stage 1 through stage 4 chronic kidney disease, or unspecified chronic kidney disease (principal); I50.23 Acute on chronic systolic (congestive) heart failure; E66.2 Morbid (severe) obesity with alveolar hypoventilation; Z68.41 Body mass index [BMI] 40.0-44.9, adult; K81.9 Cholecystitis, unspecified; K76.0 Fatty (change of) liver, not elsewhere classified; I42.9 Cardiomyopathy, unspecified; E87.6 Hypokalemia; I48.2 Chronic atrial fibrillation; N18.3 Chronic kidney disease, stage 3 (moderate); G47.33 Obstructive sleep apnea (adult) (pediatric); Z79.82 Long term (current) use of aspirin; Z79.899 Other long term (current) drug therapy; Z82.49 Family history of ischemic heart disease and other diseases of the circulatory system

== ENCOUNTER 2018-04-06 11:58 | Inpatient (IN) | payer OTHER ==
[~2018-04-06] VITALS: Ht 200.7 cm; Wt 174.2 kg
[~2018-04-06 11:58] MED LIST changes: +ASPIRIN325 PO; +DEMADEX20 MG PO; +DIGOXIN250 MCG PO; +ESCITALOPRAM OX10 MG PO; +LIPITOR 20 MG T20 M1 PO; +POTASSIUM20 PO; +PRINIVIL20 MG PO; +ZAROXOLYN 5MG TA5 MG PO
[2018-04-06 12:06] VITALS: BP 200/142
[2018-04-06 12:31] LABS: ABSOLUTE LYMPHOCYTES 0.9 thou/uL (0.8-5.3); ABSOLUTE MONOCYTES 0.5 thou/uL (0.0-1.2); ABSOLUTE NEUTROPHILS 6.5 thou/uL (1.6-8.1); BASOPHILS 0.5 %; EOSINOPHILS 0.3 %; HEMATOCRIT 39.9 % (42.0-52.0); HEMOGLOBIN 12.7 gm/dL (14.0-18.0); LYMPHOCYTES 11.1 %; MCH 30.4 pg (26.0-34.0); MCHC 31.9 g/dL (28.0-37.0); MCV 95.3 fL (80.0-100.0); MONOCYTES 6.1 %; NUCLEATED RBCS 1 /100WBC; PLATELET COUNT* 235 thou/uL (150-400); RBC 4.18 mil/uL (4.50-6.00); RDW-CV 17.5 % (10.5-14.5); WBC 7.9 thou/uL (4.0-11.0)
[2018-04-06 12:34] LABS: APTT 25.9 Seconds (25.0-31.3); INR 1.3; PROTIME 13.2 Seconds (9.20-11.50)
[2018-04-06 12:42] LABS: CALCIUM 8.8 mg/dL (8.5-10.1); POTASSIUM 4.5 mmol/L (3.5-5.1); TROPONIN-I LEVEL 0.07 ng/mL (<0.06)
[2018-04-06 12:48] LABS: ALBUMIN 3.7 g/dL (3.4-5.0); MAGNESIUM 1.8 mg/dL (1.8-2.4); TOTAL BILIRUBIN 1.3 mg/dL (<0.1-1.0); TOTAL PROTEIN 8.2 g/dL (6.4-8.2)
--- NOTE | 2018-04-06 16:04 | EKG ---
[place] [address] ELECTROCARDIOGRAM REPORT Name: BARNEY JONES Room: [place] [address] ADM IN [facility]#: [id number] Admission: 04/06/18 Attend Phys: Zhou Abad MD Discharge: Date of : 64 Report #: [id number] THIS REPORT FOR: //name// [facility] ED Test Date: 2018-04-06 Test Time: 12:02:04 Pat Name: BARNEY JONES Department: Room: [facility] Gender: Garland Maker: : 1960 Requested By: Sanford Rivera Order Number: [id number] MD: Prince Dela Cruz Measurements Intervals [place] Rate: 181 P: CT: QRS: 38 QRSD: 86 T: 224 QT: 241 QTc: 419 Interpretive Statements Atrial fibrillation with rapid V-rate Probable anterior infarct, old Nonspecific T abnormalities, lateral leads Compared to ECG 03/14/2018 13:53:45 no change Electronically Signed On 04-06-2018 16:04:36 AUTOMOTIVE SERVICE PORTER by Prince Dela Cruz [email or web address] <ELECTRONICALLY SIGNED> By: Prince Dela Cruz MD, [facility] 04/06/18 1604 1202 1202 Prince Dela Cruz MD, [facility] /EPI
--- NOTE | 2018-04-06 18:14 | NUR ---
PT GIVEN DINNER TRAY.
[2018-04-06 20:15] VITALS: BP 147/121
[2018-04-06 21:00] VITALS: BP 136/106
--- NOTE | 2018-04-06 21:00 | NUR ---
ADMITTED TO ROOM FROM ER. TELEMETRY APPLIED SHOWING A-FIB WITH HR OF 110-140'S. CARDIZEM GTT INFUSING AT 10 MG/HR. BP REMAINS ELEVATED BUT IMPROVED. PT CONT TO FEEL SOB, O2 ON AT 2L/NC WITH SAT OF 99-100%. DENIES CHEST PAIN. TYSHAWN LOWER LEGS WITH 3+ EDEMA, RED, WARM AND INTACT. SEE ADMISSION HX AND ASSESSMENT. WILL CONT TO MONITOR AND ASSIST NEEDED.
[2018-04-07] VITALS (7 sets, daily range): BP systolic 88–129; BP diastolic 65–90
[2018-04-07 05:51] LABS: ABSOLUTE BASOPHILS 0.1 thou/uL (0.0-0.2); ABSOLUTE EOSINOPHILS 0.1 thou/uL (0.0-0.7); ABSOLUTE LYMPHOCYTES 0.9 thou/uL (0.8-5.3); ABSOLUTE MONOCYTES 0.5 thou/uL (0.0-1.2); ABSOLUTE NEUTROPHILS 5.2 thou/uL (1.6-8.1); BASOPHILS 1.4 %; EOSINOPHILS 0.7 %; HEMATOCRIT 37.3 % (42.0-52.0); HEMOGLOBIN 11.6 gm/dL (14.0-18.0); LYMPHOCYTES 13.8 %; MCH 29.7 pg (26.0-34.0); MCHC 31.1 g/dL (28.0-37.0); MCV 95.6 fL (80.0-100.0); MONOCYTES 7.3 %; MPV 11.7 fl. (7.2-11.1); NUCLEATED RBCS 1 /100WBC; PLATELET COUNT* 199 thou/uL (150-400); POLYS 76.8 %; RDW-CV 17.4 % (10.5-14.5); WBC 6.8 thou/uL (4.0-11.0)
--- NOTE | 2018-04-07 06:05 | NUR ---
AWAKE MOST OF NIGHT. STATES HE FEELS MUCH BETTER THIS AM. NO LONGER FEELING SOB, O2 REMOVED. NO WHEEZING NOTED. CARDIZEM DC'D FOR HR INTO 70'S AND BP NOW LOW. DENIES DIZZINESS OF SYNCOPAL FEELING. TYLENOL GIVEN FOR GENERALIZED DISCOMFORT AND EFFECTIVE. VOIDING WITHOUT DIFFICULTY. TELEMETRY CONT TO SHOW A-FIB. HS GOALS OF REST AND SAFETY ACHIEVED. HOURLY ROUNDING OBSERVED.
[2018-04-07 06:36] LABS: CALCIUM 8.9 mg/dL (8.5-10.1); POTASSIUM 5.3 mmol/L (3.5-5.1)
--- NOTE | 2018-04-07 10:34 | NUR ---
ASSUMED CARE OF PATIENT THIS AM AT 0730. PATIENT IS ALERT AND ORIENTED X 4. HE DENIES PAIN AND DISCOMFORT THIS AM. TELE SHOWS A FIB 100 TO 120. PATIENT IS DIURESING WELL. SEE FLOW SHEET FOR ASSESSMENTS. WILL CONTINUE TO MONITOR.
--- NOTE | 2018-04-07 13:20 | NUR ---
MET WITH PT TO DISCUSS HOME SITUATION/DC PLANNING. PT KNOWN TO CM FROM PREVIOUS ADMIT THIS MONTH. HE LIVES WITH HIS DTR BUT STATES [place]. PT STATES HE TRIED TO GO BACK TO WORK BUT THAT IT 'DIDN'T WORK OUT.' PT IS INDEPENDENT, USES NO EQUIPMENT. REPORTS HE WAS ABLE TO GET HIS MEDS FILLED AFTER LAST HOSPITAL STAY AND HAS MEDS AT HOME. HE WAS TO HAVE A N APPT WITH CV NURSE PRACTITIONER YESTERDAY BUT CAME TO HOSPITAL INSTEAD. PT HAS NOT FOLLOWED UP WITH A PCP YET. HE IS UNINSURED AND LAST ADMIT 2/ DECLINED TO FILL OUT A MEDICAID MARIO D/T 'WANTING TO GO BACK TO WORK.' PT STATED HE THOUGHT HE HAD FILLED ONE OUT IN PAST, BUT PER [employer], THEY ARE NOT ABLE TO LOCATE ONE IN THE SYSTEM. PT NOW STATING HE IS AGREEABLE TO FILL OUT AN MARIO. CALLED AND FAXED FACE SHEET TO [employer], LEFT VMAILS FOR SALAS AND TRACY TO CONTACT PT RE: MARIO. WILL FOLLOW
--- NOTE | 2018-04-07 16:57 | CON ---
[address] [address] CONSULTATION Name: BARNEY JONES Room: [place] [address] ADM IN M.R.#: [id number] Admission: 04/06/18 Attend Phys: Zhou Abad MD Discharge: Date of : 64 Report #: [id number] THIS REPORT FOR: //name// CC: Zhou Abad [facility] physician/PCP DATE OF SERVICE: 04/06/2018 TYPE OF REPORT: Cardiology consultation. HISTORY OF PRESENT ILLNESS: The patient is a 57-year-old single white male who I was asked to see in the hospital after he complained of his legs being swollen. The patient has had several hospitalizations here at [place]. He initially presented last September with atrial fibrillation. Echocardiogram showed ejection fraction of 40%. Rate control was recommended rather than attempt at cardioversion. He was discharged on metoprolol, lisinopril, furosemide and Eliquis. Unfortunately, has no medical insurance, ran out of all his medications and he was readmitted a month ago complaining of shortness of breath. He was found to be in atrial fibrillation with an increased ventricular response rate. He was placed back on his medications and was just discharged a couple of weeks ago. However, he notes that recently his legs have been more swollen. His legs actually hurt. He denied any significant chest pain. He has been short of breath and noticed his heart beating fast. His daughter brought him to the Emergency Room and he was found to be in rapid atrial fibrillation and Cardiology consultation was requested. PAST MEDICAL HISTORY: Significant for knee surgery and hypertension. He was discharged 2 weeks ago. MEDICATIONS: On aspirin a day, Demadex, Eliquis, potassium, Lipitor, metoprolol and Prinivil. ALLERGIES: He has no known drug allergies. FAMILY HISTORY: His father had hypertension. SOCIAL HISTORY: He is from his . 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 He has no medical insurance. No smoking or alcohol abuse. He does have a previous history of IV methamphetamine abuse including IV heroin, but no longer abuses IV drugs. REVIEW OF SYSTEMS: He is morbidly obese. He is 6 feet 7, used to weigh up to 425 pounds, currently weighs about 370 pounds. He denies a history of snoring, stroke, peptic ulcer disease, liver disease, kidney disease, cancer, psychiatric [place] [address] CONSULTATION Name: JONESBARNEY DIAZ Lilian Room: [address]#: [id number] Admission: 04/06/18 Attend Phys: Zhou Abad MD Discharge: Date of : 64 Report #: [id number] PHYSICAL EXAMINATION: GENERAL: Revealed a large male, appeared in no distress. VITAL SIGNS: He had a blood pressure of 160/90, his pulse is 130 and he is afebrile. HEENT: He is anicteric. Conjunctivae pink. Mucous membranes appear moist. NECK: Veins difficult to assess due to obesity. CHEST: Clear to auscultation. CARDIOVASCULAR: Irregular, tachycardia. ABDOMEN: Obese. EXTREMITIES: Had pitting edema up to mid tibial area. SKIN: Warm and dry. NEUROLOGICAL: Nonfocal. RADIOLOGICAL DATA: His ECG shows atrial fibrillation with rapid ventricular response rate. Again, his echocardiogram from last summer showed an ejection fraction of 40% with left atrial enlargement. His lab work had venous duplex scan last summer, which showed no evidence of DVT. His chest x-ray today shows cardiomegaly and pulmonary congestion. LABORATORY DATA: His lab work, sodium 136, potassium 4.5, BUN 25 and creatinine 2.0, which was last summer. Liver function studies unremarkable. His BNP 12,013. TSH last summer was 4.8. Glycosylated hemoglobin was 5.4. His white blood cell count 7.9 and hemoglobin 12.7. IMPRESSION AND RECOMMENDATIONS: 1. Atrial fibrillation. The patient is on a beta evens. I would recommend adding diltiazem for rate control. 2. Edema. I would recommend Doppler to rule out deep venous thrombosis. The patient is anticoagulated. Recommend Lasix. 3. Morbid obesity. 4. Hypertension. The patient is on a beta evens. 5. History of IV drug abuse. The patient no longer abuses drugs. <ELECTRONICALLY SIGNED> By: Prince Dela Cruz MD, FACC 04/07/18 1657 1431 [id number] Dela Cruz MD, FAC /nt
[2018-04-08] VITALS: BP 104/67
[2018-04-08 04:00] VITALS: BP 118/72
[2018-04-08 05:10] LABS: CALCIUM 8.3 mg/dL (8.5-10.1); CREATININE 1.8 mg/dL (0.6-1.3)
--- NOTE | 2018-04-08 05:25 | NUR ---
ASSUMED PT CARE AT 1920. NURSING ASSESSMENT COMPLETED, PT AFIB ON METAL CASTER THROUGHOUT SHIFT WITH HR 60'S-80'S. HOURLY ROUNDING COMPLETED, CALL LIGHT WITHIN REACH. PT PROGRESSING TOWARDS GOALS. NO CONCERNS VOICED THIS SHIFT.
[2018-04-08 08:45] VITALS: BP 115/84
[2018-04-08 11:40] VITALS: BP 110/62
[2018-04-08 16:54] VITALS: BP 110/82
--- NOTE | 2018-04-08 19:52 | NUR ---
assumed pt care at 0730, full assesment done as charted. pt a/o x4, up ad lara in room, denies pain, VSS, afib on the monitor. Reviewd meds with pt and educated on changes made today. pt Wants to discharge tomorrow. remains in isolation for history of MRSA. IV site to left FA infiltrated, new iv started in left wrist. pt uses call light approprialty. Report given to Shanae EVANS
[2018-04-08 20:00] VITALS: BP 141/83
[2018-04-09] VITALS: BP 98/63
[2018-04-09 04:00] VITALS: BP 112/76
--- NOTE | 2018-04-09 05:51 | NUR ---
ASSUMED PT CARE AT 1915. NURSING ASSESSMENT COMPLETED AT START OF SHIFT. PT VOICED NO CONCERNS. AFIB WITH HR 60'S-90'S THIS SHIFT. DENIES CHEST PAIN. HOURLY ROUNDING COMPLETED. CALL LIGHT WITHIN REACH. PT PROGRESSING TOWARDS GOALS: NO CHEST PAIN, AND REST THIS SHIFT.
[2018-04-09 08:30] VITALS: BP 123/89
[2018-04-09 09:19] VITALS: BP 123/89
[2018-04-09] MEDS ORDERED: APAP650 PO (11:09)
[2018-04-09] MEDS ORDERED: CARDIZEM CD 18180 M3 PO (11:11)
[2018-04-09] MEDS ORDERED: ZAROXOLYN 5MG TA5 MG PO (11:12)
[2018-04-09] MEDS ORDERED: MINOCIN50 MG PO (11:13)
[2018-04-09] MEDS ORDERED: ELIQUIS2.5 MG PO (11:28)
--- NOTE | 2018-04-09 16:43 | NUR ---
ASSUMED PT CARE AT 0730, PT A/O X4, DENIES PAIN, VSS, AFIB ON THE MONIOTR. PT UP AD JOSY IN ROOM. RECIEVED DISCHARGE ORDERS. PT GIVEN INSTRUCTIONS ON NEW MEDS AND FOLLOW UP APPOINTMENTS. PT VERBALIZED UNDERSTANDING OF EDUCATION. PT LEFT UNIT AT APPROX 1210 WITH RIDE AND TAKEN BY STAFF.
== END 2018-04-09 12:13 | disposition home or self-care (01) | DRG 291 ==
LOC: M.ERS 11:58 → M.2W 12:54 → M.TBA-ER 12:54 → M.2W 20:51
PROVIDERS: Emergency Medicine Emergency Medical Services; Internal Medicine Cardiovascular Disease; ADMIT Internal Medicine
DX: I13.0 Hypertensive heart and chronic kidney disease with heart failure and stage 1 through stage 4 chronic kidney disease, or unspecified chronic kidney disease (principal); I50.43 Acute on chronic combined systolic (congestive) and diastolic (congestive) heart failure; Z68.41 Body mass index [BMI] 40.0-44.9, adult; E66.2 Morbid (severe) obesity with alveolar hypoventilation; L03.116 Cellulitis of left lower limb; L03.115 Cellulitis of right lower limb; G47.33 Obstructive sleep apnea (adult) (pediatric); I48.91 Unspecified atrial fibrillation; N18.3 Chronic kidney disease, stage 3 (moderate); Z79.01 Long term (current) use of anticoagulants; Z91.14 Patient's other noncompliance with medication regimen; Z79.899 Other long term (current) drug therapy; Z82.49 Family history of ischemic heart disease and other diseases of the circulatory system

== ENCOUNTER 2018-04-28 19:08 | Inpatient (IN) | payer OTHER ==
[~2018-04-28] VITALS: Ht 200.7 cm; Wt 193.7 kg
[~2018-04-28 19:08] MED LIST changes: +APAP650 PO; +CARDIZEM CD 18180 M3 PO; +ELIQUIS2.5 MG PO; +MINOCIN50 MG PO
[2018-04-28 19:21] VITALS: BP 169/118
[2018-04-28 20:01] LABS: HEMATOCRIT 41.8 % (42.0-52.0); HEMOGLOBIN 13.2 gm/dL (14.0-18.0); MCHC 31.4 g/dL (28.0-37.0); MCV 95.4 fL (80.0-100.0); MPV 11.7 fl. (7.2-11.1); RBC 4.39 mil/uL (4.50-6.00); RDW-CV 18.7 % (10.5-14.5); WBC 6.3 thou/uL (4.0-11.0)
[2018-04-28 20:16] LABS: ALBUMIN 3.4 g/dL (3.4-5.0); CALCIUM 8.5 mg/dL (8.5-10.1); CREATININE 1.9 mg/dL (0.6-1.3); POTASSIUM 3.8 mmol/L (3.5-5.1); TOTAL BILIRUBIN 1.2 mg/dL (<0.1-1.0); TOTAL PROTEIN 7.6 g/dL (6.4-8.2)
[2018-04-29 00:47] VITALS: BP 126/81
[2018-04-29 18:09] VITALS: BP 114/89
[2018-04-29 18:20] VITALS: BP 98/65
[2018-04-29 20:10] VITALS: BP 104/52
[2018-04-30 00:19] VITALS: BP 94/60
[2018-04-30 04:08] VITALS: BP 96/72
[2018-04-30 04:26] LABS: ABSOLUTE BASOPHILS 0.1 thou/uL (0.0-0.2); ABSOLUTE EOSINOPHILS 0.1 thou/uL (0.0-0.7); ABSOLUTE LYMPHOCYTES 0.8 thou/uL (0.8-5.3); ABSOLUTE MONOCYTES 0.5 thou/uL (0.0-1.2); ABSOLUTE NEUTROPHILS 4.1 thou/uL (1.6-8.1); BASOPHILS 1.2 %; EOSINOPHILS 1.1 %; HEMATOCRIT 39.9 % (42.0-52.0); HEMOGLOBIN 12.7 gm/dL (14.0-18.0); MCH 30.3 pg (26.0-34.0); MCHC 31.8 g/dL (28.0-37.0); MCV 95.2 fL (80.0-100.0); MONOCYTES 9.1 %; MPV 11.8 fl. (7.2-11.1); NUCLEATED RBCS 2 /100WBC; PLATELET COUNT* 218 thou/uL (150-400); POLYS 73.6 %; RBC 4.19 mil/uL (4.50-6.00); RDW-CV 18.4 % (10.5-14.5); WBC 5.6 thou/uL (4.0-11.0)
[2018-04-30 04:38] LABS: CALCIUM 8.1 mg/dL (8.5-10.1); CREATININE 2.1 mg/dL (0.6-1.3); POTASSIUM 4.8 mmol/L (3.5-5.1)
--- NOTE | 2018-04-30 05:36 | NUR ---
PT SLEPT ON AND OFF OVERNIGHT, UP IN RECLINER SOME OF THE NIGHT, ENCOURAGED TO KEEP BLE ELEVATED TO HELP WITH EDEMA- SOMEWHAT COMPLIANT. TELE AFIB HEART RATE ANYWHERE FROM A LOW SEEN OF 45 TO 80'S. RECEIVED MEDS ORDERED AT HS. LASIX GIVEN ORDERED AT HS. UP WITH SBA. BLE 2+ EDEMA, REDNESS AND WARMTH. PO PAIN MED GIVEN AT START OF SHIFT. AM LABS DRAWN. RAC SL IV. O2 2L PLACED ON PT OVERNIGHT-SLEEP APNEA NOTED AND SATS 87% ROOM AIR. R FOOT SORE WITH AMBULATION. REMAINS ON CONTACT ISOLATION FOR HX MRSA. VANC TROUGH ELEVATED, HS VANC DOSE HELD AND REDRAW DUE TODAY. ABLE TO USE CALL LITE AND MAKE NEEDS KNOWN. NOTIFIED OF LOW HEART RATE, STATES HE WILL EVALUATE PT ON ROUNDS.
[2018-04-30 12:00] VITALS: BP 86/49
[2018-04-30 13:15] VITALS: BP 120/80
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
[2018-04-30 16:00] VITALS: BP 93/76
--- NOTE | 2018-04-30 17:57 | NUR ---
PT A&O X4. SAO2 96% RA THIS AM. PT UP TO CHAIR DURING SHIFT. PT BLOOD PRESSURE MEDICINE HELD IN THE AM D/T LOW BP. DR WILSON NOTIFED OF LOW BP AND PULSE IN THE AM, NEW DOSAGE OF BP MEDICINE ORDERED. THE ORDERED DIURETICS WERE GIVEN IN THE AFTERNOON WHEN BP CAME UP TO 120/80, HR 85. HR IREEGULAR DURING SHIFT, AFIB ON THE MONITOR. KNEE LENGTH ROHIT HOSE APPLIED BILATERALLY ON PT'S LEG. PT'S TEMP WAS DIFFCULT TO GET THIS AM, WAS RUNNING IN THE UPPER 90'S. WARM BLANKET PUT ON PATIENT AND RECHECKED LATER ON, TEMP UP TO 97.5 DEGREES FARENHEIT. PT APPROPRIATE DURING SHIFT.
[2018-04-30 20:00] VITALS: BP 112/86
--- NOTE | 2018-04-30 22:50 | NUR ---
INITAL ASSESMENT COMPLETED AT 1999. PT REPORTED PAIN IN RIGHT FOOT RATED AT 7 ON PAIN SCALE. PT GIVEN PRN NORCO. AT 2229 PT REPORTED INCREASED SWELLING IN LEFT FOOT WITH BURNING PAIN RATED AT 10 ON PAIN SCALE. PT ASKED FOR ROHIT HOSE ON LEFT LEG TO BE REMOVED. PT STATED IT WAS SO TIGHT HE COULD NOT STAND THE PAIN. REMOVED ROHIT HOSE TO LEFT LEG ONLY PT REQUESTED. PT'S FOOT AND ANKLE BRIGHT RED WITH 4+ EDEMA. PT INSTRUCTED TO LAY IN BED. AND ELEVATE FOOT. LEFT LEG PROPPED UP WITH PILLOWS. PT GIVEN PRN FENTANYL AND ZOFRAN FOR PAIN. PT'S ORAL TEMP 97.4, BLOOD PRESSURE 112/86. HEART RATE 120. RESPIRATIONS EVEN AND NON LABORED. O2 SAT 98% ON ROOM AIR.
[2018-05-01] VITALS: BP 103/72
[2018-05-01 00:30] VITALS: BP 108/72
[2018-05-01 04:07] LABS: HEMATOCRIT 40.6 % (42.0-52.0); MCH 30.7 pg (26.0-34.0); MCV 95.8 fL (80.0-100.0); MPV 11.2 fl. (7.2-11.1); RBC 4.24 mil/uL (4.50-6.00); RDW-CV 18.5 % (10.5-14.5); WBC 6.6 thou/uL (4.0-11.0)
[2018-05-01 04:31] LABS: ALBUMIN 3.3 g/dL (3.4-5.0); CREATININE 2.2 mg/dL (0.6-1.3); POTASSIUM 4.5 mmol/L (3.5-5.1); TOTAL BILIRUBIN 0.7 mg/dL (<0.1-1.0); TOTAL PROTEIN 7.3 g/dL (6.4-8.2)
[2018-05-01 05:00] VITALS: BP 117/81
[2018-05-01 08:10] VITALS: BP 91/59
[2018-05-01 11:30] VITALS: BP 202/156
--- NOTE | 2018-05-01 12:06 | NUR ---
WOUND CARE NOTE: CONSULT RECEIVED FOR COMPRESSION WRAPS/CELLULITIS/BUTTOCK WOUND. PATIENT PRESENTS WITH 3-4+ PITTING EDEMA TO BILATERAL LOWER EXTREMITIES. ADDITIONALLY, THERE IS PURPLE DISCOLORATION TO BILATERAL FEET EXTENDING UPWARDS TO THE GAITER AREA. HAIR GROWTH STOPS AT ABOUT THE GAITER AREA TOO. FEET ARE COOL TO TOUCH, DECREASED CAPILLARY REFILL. UNABLE TO PALPATE PEDAL PULSES. DIFFICULT TO DOPPLE. NOTIFIED PHYSICIAN OF FINDINGS, NEW ORDERS RECEIVED. WILL WAIT FOR RESULTS OF ARTERIAL STUDIES. MOST LIKELY PATIENT WILL NEED FINISH CLEANER COMPRESSION THERAPY. BELIEVE HE HAS VENOUS INSUFFICIENCY. 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 EDUCATED PATIENT ON KEEPING LEGS ELEVATED, COMMUNICATED UNDERSTANDING. ALSO EDUCATED PATIENT THAT HE MAY NEED FINISH CLEANER COMPRESSION THERAPY TO KEEP THE SWELLING DOWN, COMMUNICATED UNDERSTANDING.
--- NOTE | 2018-05-01 12:40 | NUR ---
Nutrition: Consult for "wound." Pt has 3-4+ pitting edema in extremities. Wt loss educ given in 2018, and got down to 385#. Currently, wt is up to 427# - some fluid-related. Pt eating 100%. Has followed a low Na diet for some time. RX: vanc, statin. Labs: BG 118, BUN 41, cr 2.2, alb 3.3. Pt was admitted with cellulitis. No nutrition interventions needed at this time. Consider mild risk. Will follow up on wt, labs, po, 05/06/18.
--- NOTE | 2018-05-01 17:36 | NUR ---
PATIENT RESTING UP IN CHAIR. PATIENT ENCOURAGED TO KEEP LEGS ELEVATED. PATIENT HAS BEEN UP AD JOSY IN ROOM, HOWEVER RETURNED FROM ULTRASOUND WITH TROUBLE STANDING. PATIENT INSTRUCTED TO CALL FOR ASSISTANCE WHEN GETTING UP. PATIENT HAS BLE EDEMA, LEGS ARE RED/EDEMATOUS. TWO OPEN AREAS ON BILATERAL TOES, PICTURES PLACED IN CHART. PATIENT HAS GOOD APPETITE. PATIENT DENIES ANY NEEDS AT THIS TIME. CALL LIGHT WITHIN REACH. WILL CONTINUE TO MONITOR.
[2018-05-01 19:45] VITALS: BP 134/86
[2018-05-02] VITALS (7 sets, daily range): BP systolic 85–125; BP diastolic 54–82
[2018-05-02 04:18] LABS: HEMATOCRIT 40.6 % (42.0-52.0); HEMOGLOBIN 12.7 gm/dL (14.0-18.0); MCH 30.1 pg (26.0-34.0); MCHC 31.3 g/dL (28.0-37.0); MCV 96.2 fL (80.0-100.0); MPV 11.5 fl. (7.2-11.1); RBC 4.22 mil/uL (4.50-6.00); RDW-CV 18.7 % (10.5-14.5); WBC 6.2 thou/uL (4.0-11.0)
[2018-05-02 04:34] LABS: CALCIUM 7.8 mg/dL (8.5-10.1); CREATININE 2.3 mg/dL (0.6-1.3); MAGNESIUM 1.7 mg/dL (1.8-2.4); POTASSIUM 4.6 mmol/L (3.5-5.1)
--- NOTE | 2018-05-02 06:58 | NUR ---
PT SITIING IN CHAIR OR DANGLING AR BEDSIDE ENTIRE NIGHT. PT NONCOMPLIANT WITH ELEVATING EXTREMITIES. PT NON COMLIANT WEARING O2 AT NIGHT. PT CONTINUES TO BE ATRIAL FIB ON MONITOR. HEART RATE 80 TO LOW 100'S. NO ACUTE CHANGES, WILL CONTINUE PLAN OF CARE.
--- NOTE | 2018-05-02 16:19 | NUR ---
pt has been up to recliner and calls for assist as needs. pt denies pain. pt reminded to wear o2 and frequently takes it off. pt voids per urinal with good output.pt has tolerated meals and denies nausea. pt keeps feet elevated and tubigrip socks are intact.hourly rounding continues. pt repositions self frequently.
[2018-05-03] VITALS: BP 113/82
--- NOTE | 2018-05-03 00:57 | NUR ---
INITAL ASSESMENT COMPLETED AT 2044. PT SITTING ON BED WITH FEET ON FLOOR. EDUCATION GIVEN REGARDING ELEVATION OF FEET TO REDUCE SWELLING. T VERBALIZED UNDERSTANDIN BUT HAS YET TO LAY DOWN AND ELEVATE FEET. PT REMAINS IN ATIAL FIB ON MONITOR. HERT RATE 70-120. CALL LIGHT IN REACH. PT DEMONSTRATES PROPER USE.
[2018-05-03 04:00] VITALS: BP 112/80
--- NOTE | 2018-05-03 06:33 | NUR ---
PT CONTINUES TO RECIEVEWOUND CARE AND ANTIBIOTICS FOR TREATMENT OF BILATERAL LOWER EXTREMITY CELLULITIS. PT RECIEVED 2 NORCO AT BEDTIME FOR PAIN IN FEET HE DESCRIBES BURNING. PT SITTING ON BED WITH FEET ON FLOOR ENTIRE NIGHT. VITAL SIGNS WITHIN NORMAL LIMITS, WILL CONTINUE PLAN OF CARE.
[2018-05-03 09:30] VITALS: BP 112/79
[2018-05-03 15:00] VITALS: BP 98/60
[2018-05-03 21:00] VITALS: BP 109/63
[2018-05-04] VITALS (7 sets, daily range): BP systolic 104–126; BP diastolic 38–84
--- NOTE | 2018-05-04 05:54 | NUR ---
PT A&O X4. SAO2 97% RA BEGINNING OF SHIFT. PT UP TO CHAIR. TUBIGRIP ON LE BILAT. PT WAS AFIB WITH IRREGULAR HR ON MONITOR. LE ELEVATED WITH PILLOW. CALL LIGHT WITHIN REACH.
[2018-05-04] MEDS ORDERED: LISINOPRIL2.5 MG PO (12:41)
[2018-05-04] MEDS ORDERED: LOPRESSOR50 PO (12:42)
--- NOTE | 2018-05-04 14:47 | NUR ---
SW met with pt to discuss pt to dc home today. Pt was unsure of his readiness to dc, SW discussed Dr provided dc orders and no medical necessity to remain in hospital. SW provided resources for cane and/or walker as well as reviewed medication assistance programs and good Rx and other community resources. Pt agreed to dc and said he was calling someone to provide ride home. Pt nurse aware.
--- NOTE | 2018-05-04 18:53 | NUR ---
PATIENT HAS BEEN A/O X 4 THIS SHIFT. MEDICATED FOR PAIN X 1 TODAY. 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 PATIENT UP WITH SBA TO BATHROOM. WORKED WITH PT THIS SHIFT. PICTURES TAKEN OF WOUNDS IN ANTICIPATION OF DC. PATIENT'S DC ON HOLD DUE TO PATIENT AND THERAPY STATING PATIENT SLIGHTLY UNSTEADY. PATIENT UP IN CHAIR MOST OF SHIFT. REMAINS IN CONTACT ISOLATION. HOURLY ROUNDING COMPLETED. CALL LIGHT WITHIN REACH. WILL CONTINUE WITH PLAN OF CARE.
[2018-05-05 00:30] VITALS: BP 104/71
[2018-05-05 03:53] VITALS: BP 112/68
--- NOTE | 2018-05-05 06:58 | NUR ---
PT A&O DURING SHIFT. SAO2 @ 96% RA. PT WAS ON CHAIR ALL THROUGH SHIFT. PT WAS AFIB ON THE MONITOR. PT HAD 7 RUNS OF VTACH AND COUPLETS FROM 0253 - 0310 THIS AM, ECG WAS PRINTED AND PLACED ON PT'S CHART. PT ROHIT HOSE WAS IN PLACE DURING SHIFT. LE'S WERE ELEVATED. PT HOPING TO DC TO HOME TODAY.
[2018-05-05 08:00] VITALS: BP 90/67
[2018-05-05 09:06] VITALS: BP 123/78
--- NOTE | 2018-05-05 09:41 | NUR ---
PER EDGARD, PT HAS MEDICAID MARIO PENDING OF 05/04
[2018-05-05 13:57] VITALS: BP 154/65
[2018-05-05] MEDS ORDERED: MINOCYCLINE HC100 M2 PO (13:57)
--- NOTE | 2018-05-05 14:37 | NUR ---
PATIENT GIVEN DISCHARGE INSTRUCTIOSN AND PRESCRIPTIONS. PATIENT VERBALIZED UNDERSTANDING. PICTURES OBTAINED YESTERDAY. MACHINE OVERHAULER REMOVED. PATIENT DISCHARGED VIA WHEELCHAIR TO HOME WITH ALL BELONGINGS. ESCORTED OFF NURSING UNIT VIA WHEELCHAIR AND NURSING STAFF.
== END 2018-05-05 14:30 | disposition home or self-care (01) | DRG 602 ==
LOC: M.ERS 19:08 → M.TBA-ER 20:23 → M.3W 04-29 18:24
PROVIDERS: Internal Medicine; Nurse Practitioner Family; ADMIT Family Medicine
DX: L03.115 Cellulitis of right lower limb (principal); I50.23 Acute on chronic systolic (congestive) heart failure; N17.9 Acute kidney failure, unspecified; I47.1 Supraventricular tachycardia; Z68.42 Body mass index [BMI] 45.0-49.9, adult; I13.0 Hypertensive heart and chronic kidney disease with heart failure and stage 1 through stage 4 chronic kidney disease, or unspecified chronic kidney disease; L03.116 Cellulitis of left lower limb; E66.01 Morbid (severe) obesity due to excess calories; I48.91 Unspecified atrial fibrillation; N18.3 Chronic kidney disease, stage 3 (moderate); G47.33 Obstructive sleep apnea (adult) (pediatric); S93.601A Unspecified sprain of right foot, initial encounter; I87.8 Other specified disorders of veins; Z91.19 Patient's noncompliance with other medical treatment and regimen; Z82.49 Family history of ischemic heart disease and other diseases of the circulatory system; Z79.899 Other long term (current) drug therapy; W18.39XA Other fall on same level, initial encounter; Y93.89 Activity, other specified; Y92.89 Other specified places as the place of occurrence of the external cause; Y99.8 Other external cause status

== ENCOUNTER 2018-05-24 10:36 | Inpatient (IN) | payer OTHER ==
[2018-05-24] VITALS (8 sets, daily range): BP systolic 111–154; BP diastolic 80–128
[~2018-05-24] VITALS: Ht 200.7 cm; Wt 189.6 kg
[~2018-05-24 10:36] MED LIST changes: +LISINOPRIL2.5 MG PO; +MINOCYCLINE HC100 M2 PO
[2018-05-24] MEDS ORDERED: ASPIR 8181 MG PO (10:47)
[2018-05-24 11:05] LABS: HEMATOCRIT 40.7 % (42.0-52.0); MCV 93.7 fL (80.0-100.0); MPV 11.5 fl. (7.2-11.1); NUCLEATED RBCS 1 /100WBC; PLATELET COUNT* 251 thou/uL (150-400); RBC 4.35 mil/uL (4.50-6.00); WBC 6.8 thou/uL (4.0-11.0)
[2018-05-24 11:17] LABS: INR 1.4; PROTIME 14.1 Seconds (9.20-11.50)
[2018-05-24 11:24] LABS: CALCIUM 8.9 mg/dL (8.5-10.1); POTASSIUM 3.8 mmol/L (3.5-5.1); TROPONIN-I LEVEL 0.07 ng/mL (<0.06)
[2018-05-24 11:27] LABS: ALBUMIN 3.3 g/dL (3.4-5.0); CK-MB MASS 2.3 ng/mL (<0.5-3.6); MAGNESIUM 1.8 mg/dL (1.8-2.4); TOTAL BILIRUBIN 1.4 mg/dL (<0.1-1.0); TOTAL PROTEIN 7.8 g/dL (6.4-8.2)
[2018-05-24 11:37] LABS: ABSOLUTE EOSINOPHILS 0.1 thou/uL (0.0-0.7); ABSOLUTE LYMPHOCYTES 0.7 thou/uL (0.8-5.3); ABSOLUTE MONOCYTES 0.1 thou/uL (0.0-1.2); ABSOLUTE NEUTROPHILS 5.8 thou/uL (1.6-8.1); ATYPICAL LYMPHS 2 %
[2018-05-24 11:38] LABS: PLATELET ESTIMATE ADEQUATE
[2018-05-24 15:01] LABS: CALCIUM 8.8 mg/dL (8.5-10.1); CREATININE 1.9 mg/dL (0.6-1.3); MAGNESIUM 1.8 mg/dL (1.8-2.4); POTASSIUM 4.3 mmol/L (3.5-5.1)
[2018-05-25] VITALS (8 sets, daily range): BP systolic 96–139; BP diastolic 68–89
--- NOTE | 2018-05-25 11:10 | EKG ---
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 : 1960 Requested By: Hemal Alamo Order Number: [id number] MD: Edmond Hernandez Measurements Intervals [place] Rate: 186 P: [place]: QRS: 45 QRSD: 86 T: 243 QT: 246 QTc: 433 Interpretive Statements Atrial fibrillation with rapid V-rate Nonspecific T abnormalities, lateral leads Compared to ECG 04/06/2018 12:02:04 Myocardial infarct finding no longer present T-wave abnormality still present Electronically Signed On 05-25-2018 11:09:58 CDT by Edmond Hernandez [email or web address] <ELECTRONICALLY SIGNED> By: Edmond Hernandez MD, [facility] 05/25/18 1109 1040 1040 Edmond Hernandez MD, [facility] /EPI
[2018-05-26] VITALS: BP 115/71
[2018-05-26 02:06] LABS: GLYCOHEMOGLOBIN (HGB A1C) 6.5 % (4.8-5.6)
[2018-05-26 04:00] VITALS: BP 105/66
[2018-05-26 08:00] VITALS: BP 121/96
[2018-05-26 13:00] VITALS: BP 129/102
[2018-05-26 16:00] VITALS: BP 121/80
[2018-05-26 20:00] VITALS: BP 131/106
[2018-05-27] VITALS: BP 107/63
[2018-05-27 04:00] VITALS: BP 107/68
[2018-05-27 08:00] VITALS: BP 109/72
[2018-05-27 08:30] LABS: CALCIUM 7.9 mg/dL (8.5-10.1); CREATININE 2.3 mg/dL (0.6-1.3); POTASSIUM 3.9 mmol/L (3.5-5.1)
[2018-05-27 13:45] VITALS: BP 113/86
[2018-05-27 15:22] VITALS: BP 131/76
[2018-05-27 20:10] VITALS: BP 121/82
[2018-05-28] VITALS: BP 110/69
[2018-05-28 04:00] VITALS: BP 125/68
[2018-05-28 09:11] LABS: CREATININE 2.1 mg/dL (0.6-1.3); POTASSIUM 4.2 mmol/L (3.5-5.1)
[2018-05-28 11:49] VITALS: BP 129/81
--- NOTE | 2018-05-28 12:56 | CON ---
[address] [address] CONSULTATION Name: BARNEY JONES Room: [address] IN .R.#: [id number] Admission: 05/24/18 Attend Phys: Lona Abernathy Discharge: Date of : 64 Report #: [id number] THIS REPORT FOR: //name// CC: [facility] physician/PCP Cody Rebolledo DATE OF SERVICE: 05/27/2018 TYPE OF REPORT: Infectious disease consultation. ATTENDING PHYSICIAN: Cody Rebolledo D.O. REASON FOR EVALUATION: Bilateral lower extremity inflammatory eruption, probably multifactorial. Suspect a component of skin and soft tissue infection with cellulitis, has had multiple wounds as well. HISTORY OF PRESENT ILLNESS: Chart reviewed, the patient examined. This 58-year-old with fairly significant medical history with cardiomyopathy, history of congestive heart failure; who presented to the Emergency Room on 24 May with complaints of midsternal chest pain that had been ongoing for minutes to hours. On evaluation, he was found to have volume expansion, bilateral lower extremities with marked edema. It is notable he has got some superficial ulcerations as well directly dealt with his potential cardiac issue; however, due to concerns about secondary infection, cultures of the blood and one of the ulcers, Gram stain showed gram-negative rods without evidence of white cells. He is undergoing compression therapy. He is currently started empirically on vancomycin, piperacillin and tazobactam. He is mildly encephalopathic. He has not had any recent fevers or chills. Appetite has been fair. Does have ongoing issues with dyspnea as well. He is on supplemental oxygen at 3 liters. He has been as high as 8. ALLERGIES: None known. CURRENT MEDICATIONS: Include vancomycin, diltiazem, metoprolol, levalbuterol, aspirin, atorvastatin, pantoprazole, Zosyn, p.r.n. analgesics, antiemetics and zolpidem. PAST MEDICAL HISTORY: Includes hypertension; atrial fibrillation; has cardiomyopathy with history of congestive heart failure, EF a year ago of 40%; renal insufficiency; obesity hypoventilation syndrome; obstructive sleep apnea; history of depression; gallstones; and morbid obesity. SOCIAL HISTORY: Former smoker. No ethanol. Does occasionally use marijuana. FAMILY HISTORY: [place] [address] CONSULTATION Name: BARNEY JONES Room: [address]#: [id number] Admission: 05/24/18 Attend Phys: Lona Abernathy Discharge: Date of : 64 Report #: [id number] REVIEW OF SYSTEMS: Otherwise unremarkable 10-point review of systems with the exception noted above in history of present illness. PHYSICAL EXAMINATION: GENERAL: He appears somewhat chronically ill, undernourished. He has just returned from the bathroom. He is dyspneic and he is unable to complete sentences. VITAL SIGNS: Temperature 98.1, pulse 95, respirations 19 and blood pressure 113/86. SKIN: Warm and dry. No rashes. HEENT: Normocephalic. Extraocular muscles intact. NECK: Supple. LUNGS: Scattered wheezes, some crackles. CARDIAC: Irregular. Borderline tachycardic. I do not appreciate any murmur. ABDOMEN: Obese and soft. There are no peritoneal signs. Lower extremities have taut edema bilaterally. There is a change consistent with venous stasis insufficiency, underlying dermatitis. Does have some superficial wounds with eschars. They are mildly tender to touch in a moderate degree of overall inflammation. GENITOURINARY: Deferred. RECTAL: Deferred. LABORATORY DATA: Electrolytes: Sodium 133, potassium 3.9, chloride 98, bicarbonate is 27, anion gap of 8, BUN and creatinine 50 and 2.3, and glucose of 96. Cultures pending. Gram stain with many gram-negative rods, no white cells. Blood cultures sterile thus far. Surveillance for MRSA was negative by PCR. Lactic acid was 1.8 on repeat and initially was 3.0. Liver function tests: Alkaline phosphatase of 149, otherwise unremarkable. Albumin of 3.3 and total protein 7.8. RADIOLOGICAL DATA: Chest x-ray, there is a question of heart failure with interstitial edema. Venous Doppler without evidence of lower extremity DVT. Arterial Doppler from a couple of months ago was otherwise unremarkable as well. ASSESSMENT: Bilateral lower extremity inflammatory eruption. Continue antimicrobial therapy and Gram staining has gram-negative rods, typically with a gram-positive cocci. We will try to pare down treatment as allowed. Dosing is q. 8h., I think that is adjusted for renal insufficiency. We will see how he does clinically over the course of the next 24-48 hours. Again encouraged elevation while in bed and compression. Should be able to tolerate moderate based on the arterial Doppler studies. We will follow. Noted still has orthopnea, makes it difficult to aggressively redirect the fluid ___ worsening his heart failure. [facility] [address] [place] [address] CONSULTATION Name: BARNEY JONES Room: [address] IN .R.#: [id number] Admission: 05/24/18 Attend Phys: Lona Abernathy Discharge: Date of : 64 Report #: [id number] We will follow. <ELECTRONICALLY SIGNED> By: Angus Holden MD 05/28/18 1256 1638 1057Jobrigette Holden MD /nt
[2018-05-28 15:28] VITALS: BP 124/83
[2018-05-28 20:10] VITALS: BP 156/84
[2018-05-29] VITALS (7 sets, daily range): BP systolic 121–144; BP diastolic 81–97
[2018-05-29 10:02] LABS: CALCIUM 8.3 mg/dL (8.5-10.1); CREATININE 1.9 mg/dL (0.6-1.3); POTASSIUM 3.8 mmol/L (3.5-5.1)
[2018-05-30 04:00] VITALS: BP 132/75
[2018-05-30 05:19] LABS: CREATININE 1.9 mg/dL (0.6-1.3); MAGNESIUM 1.5 mg/dL (1.8-2.4); POTASSIUM 3.7 mmol/L (3.5-5.1)
[2018-05-30 12:00] VITALS: BP 124/94
[2018-05-30 16:09] VITALS: BP 131/78
[2018-05-30 20:23] VITALS: BP 140/62
[2018-05-30 23:15] VITALS: BP 144/90
[2018-05-31 04:10] VITALS: BP 138/77
[2018-05-31 04:58] LABS: HEMATOCRIT 37.5 % (42.0-52.0); HEMOGLOBIN 12.1 gm/dL (14.0-18.0); MCH 29.7 pg (26.0-34.0); MCHC 32.2 g/dL (28.0-37.0); MCV 92.1 fL (80.0-100.0); MPV 10.8 fl. (7.2-11.1); NUCLEATED RBCS 0 /100WBC; PLATELET COUNT* 156 thou/uL (150-400); RBC 4.07 mil/uL (4.50-6.00); RDW-CV 19.1 % (10.5-14.5); WBC 6.8 thou/uL (4.0-11.0)
[2018-05-31 05:49] LABS: CALCIUM 8.1 mg/dL (8.5-10.1); CREATININE 1.6 mg/dL (0.6-1.3); POTASSIUM 3.7 mmol/L (3.5-5.1)
[2018-05-31 07:06] LABS: ABSOLUTE EOSINOPHILS 0.3 thou/uL (0.0-0.7); ABSOLUTE LYMPHOCYTES 0.3 thou/uL (0.8-5.3); ABSOLUTE MONOCYTES 0.3 thou/uL (0.0-1.2); ABSOLUTE NEUTROPHILS 5.9 thou/uL (1.6-8.1); ANISOCYTOSIS 1+; HYPOCHROMASIA Occasional; PLATELET ESTIMATE ADEQUATE; POIKILOCYTOSIS 1+
[2018-05-31 08:00] VITALS: BP 138/90
[2018-05-31 11:50] VITALS: BP 120/73
[2018-05-31 12:00] VITALS: BP 135/81
[2018-05-31 16:00] VITALS: BP 120/70
[2018-05-31 20:18] VITALS: BP 138/84
[2018-06-01 00:30] VITALS: BP 141/63
[2018-06-01 03:47] VITALS: BP 128/76
[2018-06-01 04:32] LABS: CALCIUM 7.9 mg/dL (8.5-10.1); CREATININE 1.5 mg/dL (0.6-1.3); MAGNESIUM 1.3 mg/dL (1.8-2.4); POTASSIUM 3.7 mmol/L (3.5-5.1)
[2018-06-01] MEDS ORDERED: LEVAQUIN 500 M500 M1 PO (08:58)
[2018-06-01] MEDS ORDERED: TOPROL XL100 MG PO (08:58)
[2018-06-01] MEDS ORDERED: DEMADEX20 MG PO (08:58)
[2018-06-01] MEDS ORDERED: CARDIZEM CD240 MG PO (08:58)
[2018-06-01 10:05] VITALS: BP 131/87
== END 2018-06-01 16:44 | disposition home or self-care (01) | DRG 602 ==
LOC: M.ERS 10:36 → M.2W 12:02 → M.ICU 12:02 → M.TBA-ER 12:02 → M.ICU 13:08 → M.2W 05-25 07:59
PROVIDERS: Family Medicine; Internal Medicine; Internal Medicine Infectious Disease; Registered Nurse; ADMIT Internal Medicine
DX: L03.115 Cellulitis of right lower limb (principal); I50.23 Acute on chronic systolic (congestive) heart failure; I13.0 Hypertensive heart and chronic kidney disease with heart failure and stage 1 through stage 4 chronic kidney disease, or unspecified chronic kidney disease; I42.9 Cardiomyopathy, unspecified; L97.919 Non-pressure chronic ulcer of unspecified part of right lower leg with unspecified severity; L97.929 Non-pressure chronic ulcer of unspecified part of left lower leg with unspecified severity; Z68.42 Body mass index [BMI] 45.0-49.9, adult; L03.116 Cellulitis of left lower limb; B95.2 Enterococcus as the cause of diseases classified elsewhere; E11.22 Type 2 diabetes mellitus with diabetic chronic kidney disease; J44.9 Chronic obstructive pulmonary disease, unspecified; L29.9 Pruritus, unspecified; I48.2 Chronic atrial fibrillation; E78.00 Pure hypercholesterolemia, unspecified; N18.3 Chronic kidney disease, stage 3 (moderate); F32.9 Major depressive disorder, single episode, unspecified; E66.01 Morbid (severe) obesity due to excess calories; G47.33 Obstructive sleep apnea (adult) (pediatric); Z79.84 Long term (current) use of oral hypoglycemic drugs; Z79.82 Long term (current) use of aspirin; Z79.899 Other long term (current) drug therapy; Z79.01 Long term (current) use of anticoagulants; Z87.891 Personal history of nicotine dependence; Z82.49 Family history of ischemic heart disease and other diseases of the circulatory system

== ENCOUNTER 2018-07-24 11:59 | Inpatient (IN) | payer OTHER ==
[~2018-07-24] VITALS: Ht 200.7 cm; Wt 147.0 kg
[~2018-07-24 11:59] MED LIST changes: +LEVAQUIN 500 M500 M1 PO; +TOPROL XL100 MG PO
[2018-07-24 12:01] VITALS: BP 163/121
[2018-07-24 12:22] LABS: ABSOLUTE EOSINOPHILS 0.2 thou/uL (0.0-0.7); ABSOLUTE LYMPHOCYTES 0.8 thou/uL (0.8-5.3); ABSOLUTE MONOCYTES 0.5 thou/uL (0.0-1.2); ABSOLUTE NEUTROPHILS 3.5 thou/uL (1.6-8.1); BASOPHILS 0.6 %; EOSINOPHILS 3.3 %; HEMATOCRIT 34.8 % (42.0-52.0); HEMOGLOBIN 11.6 gm/dL (14.0-18.0); LYMPHOCYTES 15.3 %; MCHC 33.2 g/dL (28.0-37.0); MCV 90.4 fL (80.0-100.0); MPV 10.1 fl. (7.2-11.1); NUCLEATED RBCS 0 /100WBC; PLATELET COUNT* 150 thou/uL (150-400); POLYS 70.8 %; RBC 3.84 mil/uL (4.50-6.00); RDW-CV 16.7 % (10.5-14.5); WBC 4.9 thou/uL (4.0-11.0)
[2018-07-24 12:27] LABS: ANION GAP 9 mmol/L (7-16); BUN 27 mg/dL (7-18); CHLORIDE 103 mmol/L (98-107); CO2 26 mmol/L (21-32); CREATININE 1.4 mg/dL (0.6-1.3); GLUCOSE 98 mg/dL (70-99); POTASSIUM 4.6 mmol/L (3.5-5.1); SODIUM 138 mmol/L (136-145)
[2018-07-24 12:28] LABS: APTT 28.2 Seconds (25.0-31.3); PROTIME 10.2 Seconds (9.20-11.50)
[2018-07-24 12:38] LABS: ALBUMIN 3.6 g/dL (3.4-5.0); ALKALINE PHOSPHATASE 137 U/L (46-116); NT-PRO BRAIN NAT PEPTIDE 7328 pg/mL (<300); SGOT 21 U/L (15-37); SGPT 24 U/L (30-65); TOTAL BILIRUBIN 0.6 mg/dL (<0.1-1.0); TROPONIN-I LEVEL <0.06 ng/mL (<0.06)
--- NOTE | 2018-07-24 14:38 | EKG ---
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
[2018-07-24 15:28] VITALS: BP 130/69
[2018-07-24 15:50] VITALS: BP 135/67
--- NOTE | 2018-07-24 17:44 | NUR ---
KYUNG RESTING IN BED. ADMISSION COMPLETED. RESTING COMFORTABLY WITH CARDIZEM INFUSING. AFIB ON MONITOR. HOURLY ROUNDING COMPLETED FOR PATIENT SAFETY.
[2018-07-24 20:00] VITALS: BP 124/67
[2018-07-25] VITALS: BP 118/55
[2018-07-25 04:00] VITALS: BP 107/65
--- NOTE | 2018-07-25 05:17 | NUR ---
ASSUMED PT CARE AT 1930. NURSING ASSESSMENT COMPLETED AT START OF SHIFT. PT VOICED NO CONCERNS, PT ON DILITAZEM DRIP AT 5 MG/HR. 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 HOURLY ROUNDING COMPLETED. CALL LIGHT WITHIN REACH.
[2018-07-25 08:00] VITALS: BP 130/81
--- NOTE | 2018-07-25 12:13 | NUR ---
ASSUMED CARE OF PATIENT THIS AM AT 0730. PATIENT IS ALERT AND ORIENTED X 4. HE DENIES PAIN AND DISCOMFORT. HE HAS BEEN UP AD JOSY IN THE ROOM. CARDIZEM REMAINS AT 5 MG/HR. HIS HEARTRATE IS STABLE A FIBE RATE 60 TO 80. WILL CONTINUE TO MONITOR.
[2018-07-25 12:31] VITALS: BP 124/85
[2018-07-25 16:22] VITALS: BP 131/79
[2018-07-25 20:00] VITALS: BP 125/77
[2018-07-26] VITALS: BP 128/71
[2018-07-26 04:00] VITALS: BP 109/64
--- NOTE | 2018-07-26 04:55 | NUR ---
ASSUMED PT CARE @ 1930. TRACING AFIB ON MONITOR-RATE CONTROLLED. PT AMBULATED IN HALLWAY BEFORE BED. DENIED ANY CP OR SOA. PT DID REPORT BOYD THIS AM. TYLENOL GIVEN. CALL LIGHT IN REACH. HOURLY ROUNDING FOR SAFETY.
[2018-07-26 04:59] LABS: CALCIUM 8.8 mg/dL (8.5-10.1); CREATININE 1.5 mg/dL (0.6-1.3); MAGNESIUM 1.6 mg/dL (1.8-2.4); POTASSIUM 4.3 mmol/L (3.5-5.1)
[2018-07-26 08:00] VITALS: BP 122/74
[2018-07-26] MEDS ORDERED: METOPROLOL SUCC25 M1 PO (08:45)
--- NOTE | 2018-07-26 11:45 | NUR ---
ASSUMED CARE THIS AM AT 0730. PATIENT IS ALERT AND ORIENTED X 4. HE DENIES PAIN AND SOA. TELE SHOWS CHRONIC A FIB. PATIENT HAS BEEN UP AD IIB IN THE ROOM. DR IN TO ROUND AND DISCHARGE PLANNED FOR TODAY. CARDIOLOGY IN TO ROUND AND DISCHARGE OKAY WITH THEM. WILL START DISCHARGE PROCESS.
[2018-07-26 12:00] VITALS: BP 124/83
[2018-07-26 13:09] VITALS: BP 124/83
[2018-07-26] MEDS ORDERED: TOPROL XL100 MG PO (13:45)
[2018-07-26 13:49] VITALS: BP 124/83
== END 2018-07-26 17:00 | disposition home or self-care (01) | DRG 308 ==
LOC: M.ERS 11:59 → M.TBA-ER 13:52 → M.2W 13:52
PROVIDERS: Personal Emergency Response Attendant; ADMIT Internal Medicine
DX: I48.2 Chronic atrial fibrillation (principal); I50.23 Acute on chronic systolic (congestive) heart failure; I13.0 Hypertensive heart and chronic kidney disease with heart failure and stage 1 through stage 4 chronic kidney disease, or unspecified chronic kidney disease; E66.2 Morbid (severe) obesity with alveolar hypoventilation; I42.9 Cardiomyopathy, unspecified; I25.10 Atherosclerotic heart disease of native coronary artery without angina pectoris; I87.2 Venous insufficiency (chronic) (peripheral); F32.9 Major depressive disorder, single episode, unspecified; I16.0 Hypertensive urgency; N18.3 Chronic kidney disease, stage 3 (moderate); Z68.36 Body mass index [BMI] 36.0-36.9, adult; Z79.82 Long term (current) use of aspirin; Z79.899 Other long term (current) drug therapy; Z91.14 Patient's other noncompliance with medication regimen; Z82.49 Family history of ischemic heart disease and other diseases of the circulatory system; Z87.891 Personal history of nicotine dependence

== ENCOUNTER → 2019-03-10 | Outpatient (CLI) | payer MEDICAID ==
[~2019-03-10] MED LIST changes: +METOPROLOL SUCC25 M1 PO
--- NOTE | 2019-03-10 14:24 | 2DMMODE ---
[place] [address] 2 D/M-MODE ECHOCARDIOGRAM Name: BARNEY JONES Room: [facility]#: [id number] Admission: 03/10/19 Attend Phys: Hernandez Givens, Discharge: Date of : 64 Date of Service: 03/10/19 1423 Report #: [id number] THIS REPORT FOR: //name// APPROVED REPORT Study performed: 03/10/2019 13:23:57 EXAM: Comprehensive 2D, Doppler, and color-flow Echocardiogram Patient Location: Out-Patient BSA: 2.87 HR: 94 bpm BP: 170/100 mmHg Other Information Study Quality: Technically Limited Indications Atrial Fibrillation Cardiomyopathy 2D Dimensions IVSd: 15.67 (7-11mm) LVOT Diam: 20.27 (18-24mm) LVDd: 42.25 mm PWd: 14.81 (7-11mm) Ascending Ao: 31.84 (22-36mm) LVDs: 30.60 (25-40mm) Aortic Root: 29.03 mm Volumes Left Atrial Volume (Systole) LA ESV Index: 22.30 mL/m2 Aortic Valve AoV Peak Tru.: 1.52 m/s AO Peak Gr.: 9.19 mmHg LVOT Max P.86 mmHg AO Mean Gr.: 5.27 mmHg LVOT Mean P.93 mmHg LVOT Max V: 0.98 m/s AO V2 VTI: 24.37 cm LVOT Mean V: 0.63 m/s RADHA (VTI): 2.39 cm2 LVOT V1 VTI: 18.06 cm Mitral Valve MV Decel. Time: 232.06 ms MV E Max Tru.: 1.00 m/s MV PHT: 67.30 ms MVA (PHT): 3.27 [place] [address] 2 D/M-MODE ECHOCARDIOGRAM Name: BARNEY JONES Room: [facility]#: [id number] Admission: 03/10/19 Attend Phys: Hernandez Givens, Discharge: Date of : 64 Date of Service: 03/10/19 1423 Report #: [id number] TDI E/Lateral E': 9.09 E/Medial E': 9.09 Medial E' Tru.: 0.11 m/s Lateral E' Tru.: 0.11 m/s Pulmonary Valve PV Peak Tru.: 1.16 m/s PV Peak Gr.: 5.42 mmHg Tricuspid Valve RAP Estimate: 5.00 mmHg TR Peak Gr.: 23.19 mmHg RVSP: 28.19 mmHg PA Pressure: 28.19 mmHg Left Ventricle The left ventricle is normal size. Endocardium was not well visualized making segmental wall motion analysis difficult Mild concentric left ventricular hypertrophy. Left ventricular systolic function is normal. The left ventricular ejection fraction is within the normal range. This study is not technically sufficient to allow evaluation of the LV diastolic function due to atrial fibrillation. Right Ventricle The right ventricle is normal size. The right ventricular systolic function is normal. Atria The left atrium size is normal. The right atrium size is normal. Aortic Valve The Aortic valve is sclerotic. No aortic regurgitation is present. There is no aortic valvular stenosis. Mitral Valve The mitral valve is normal in structure. There is no mitral valve regurgitation noted. No evidence of mitral valve stenosis. Tricuspid Valve The tricuspid valve is normal in structure. Mild tricuspid regurgitation. estimated pa pressure 30 mm Hg Pulmonic Valve The pulmonary valve is normal in structure. There is no pulmonic [place] [address] 2 D/M-MODE ECHOCARDIOGRAM Name: BARNEY JONES Room: [facility]#: [id number] Admission: 03/10/19 Attend Phys: Hernandez Givens, Discharge: Date of : 64 Date of Service: 03/10/19 1423 Report #: [id number] Great Vessels The aortic root is normal in size. IVC is normal in size and collapses >50% with inspiration. Pericardium There is no pericardial effusion. <Conclusion> Mild concentric left ventricular hypertrophy. Left ventricular systolic function is normal. The left ventricular ejection fraction is within the normal range. The Aortic valve is sclerotic. <ELECTRONICALLY SIGNED> By: Prince Dela Cruz MD, FACC 03/10/19 1423 1423 1423 Prince Dela Cruz MD, FACC /INF
[2019-03-10 15:26] LABS: ALBUMIN 3.9 g/dL (3.4-5.0); CREATININE 1.7 mg/dL (0.6-1.3); POTASSIUM 4.1 mmol/L (3.5-5.1); TOTAL BILIRUBIN 0.3 mg/dL (<0.1-1.0); TOTAL PROTEIN 8.7 g/dL (6.4-8.2)
== END ==
LOC: M.CRD 03-08 10:00 → M.LAB 12:55 → M.CRD 12:55
PROVIDERS: Registered Nurse
DX: I36.1 Nonrheumatic tricuspid (valve) insufficiency (principal); I48.91 Unspecified atrial fibrillation; I50.22 Chronic systolic (congestive) heart failure

== ENCOUNTER → 2019-08-12 | Outpatient (CLI) | payer MEDICAID ==
[2019-08-12] VITALS (8 sets, daily range): BP systolic 99–146; BP diastolic 56–87
[~2019-08-12] VITALS: Ht 200.7 cm; Wt 162.4 kg
[~2019-08-12] MED LIST changes: +CARDIZEM SR 60M60 MG PO; +DIGOX125 MCG PO; +ENTRESTO 24 MG1 EACH PO; +TORSEMIDE20 MG PO
[2019-08-12 10:27] LABS: HEMATOCRIT 34.4 % (42.0-52.0); HEMOGLOBIN 11.5 gm/dL (14.0-18.0); MCH 30.3 pg (26.0-34.0); MCHC 33.4 g/dL (28.0-37.0); MCV 90.6 fL (80.0-100.0); MPV 10.4 fl. (7.2-11.1); RBC 3.8 mil/uL (4.50-6.00); RDW-CV 15.1 % (10.5-14.5); WBC 6.6 thou/uL (4.0-11.0)
[2019-08-12 10:32] LABS: APTT 26.5 Seconds (25.0-31.3); PROTIME 10.4 Seconds (9.20-11.50)
[2019-08-12 10:59] LABS: ANION GAP 10 mmol/L (7-16); BUN 22 mg/dL (7-18); CALCIUM 7.5 mg/dL (8.5-10.1); CHLORIDE 105 mmol/L (98-107); CO2 26 mmol/L (21-32); CREATININE 1.5 mg/dL (0.6-1.3); GLUCOSE 112 mg/dL (70-99); POTASSIUM 3.6 mmol/L (3.5-5.1); SODIUM 141 mmol/L (136-145)
[2019-08-12 11:04] LABS: ALBUMIN 3.6 g/dL (3.4-5.0); ALKALINE PHOSPHATASE 94 U/L (46-116); SGOT 17 U/L (15-37); SGPT 22 U/L (30-65); TOTAL BILIRUBIN 0.5 mg/dL (<0.1-1.0); TOTAL PROTEIN 7.7 g/dL (6.4-8.2)
[2019-08-12 11:07] LABS: SERUM ASSESSMENT Clear
[2019-08-12 11:18] LABS: CHOLESTEROL 119 mg/dL (<200); HDL CHOLESTEROL 41 mg/dL (>40); LDL CHOLESTEROL 63 mg/dL (<100); TC:HDL 2.9 Ratio (Not establshd); TRIGLYCERIDE 77 mg/dL (<150); VLDL 15 mg/dL (<40)
--- NOTE | 2019-08-12 12:20 | EKG ---
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1960 Requested By: Hernandez Givens Order Number: [id number] Reading MD: Prince Dela Cruz Measurements Intervals [place] Rate: 84 P: SD: QRS: 19 QRSD: 90 T: 64 QT: 352 QTc: 417 Interpretive Statements Atrial fibrillation Low voltage, precordial leads septal infarct, old Compared to ECG 07/24/2018 12:03:52 Low QRS voltage now present rate has decreased Electronically Signed On 08-12-2019 12:19:55 CDT by Prince Dela Cruz [email or web address] <ELECTRONICALLY SIGNED> By: Prince Dela Cruz MD, [facility] 08/12/19 1219 1015 1015 Prince Dela Cruz MD, [facility] /EPI
--- NOTE | 2019-08-12 13:56 | CARD ---
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 The right femoral was infiltrated with 2% Lidocaine subcutaneous anesthesia. A [place] 6 FR sheath was inserted into the right femoral artery. Coronary angiography was performed using coronary diagnostic catheters. The right coronary system was accessed and visualized with a Diagnostic 6 Fr JR 4 catheter. The left coronary system was accessed and visualized with a Diagnostic 6 Fr JL 4 catheter. The left ventricle was accessed and visualized with a Diagnostic 6 Fr JR 4 catheter. Left ventricular/Aortic Valve gradient assessed via catheter pullback. Closure device was deployed with a Fr Mynx 6Fr/7Fr. The patient tolerated the procedure well and there were no complications associated with the procedure. There was no hematoma. Intraoperative Conscious Sedation Sedation start time: 11:56 Case end Time: 12:06 Fentanyl 25 mcg Versed [address] [place] [address] CARDIAC CATH REPORT Name: BARNEY JONES Room: [facility]#: [id number] Admission: 08/12/19 Attend Phys: Hernandez Givens MD Discharge: Date of : 64 Report #: [id number] Fluoro Time: 1.5 minutes Dose: DAP 59280 cGycm2 809 mGy Contrast Type and Amount: Visipaque 70 ml Coronary Angiography The patient's coronary anatomy is right dominant. Diagnostic Cath Left Main The left main coronary artery is normal and gives rise to a left anterior descending, circumflex and a moderate sized intermediate ramus branch. LAD Left anterior descending coronary artery is normal in its proximal mid and distal portion. Diagonal 1 A large first diagonal branch is normal. Diagonal 2 A moderate size second diagonal branch is normal. Circumflex The circumflex coronary artery is normal in its proximal mid and distal portion. OM1 The first obtuse marginal branch is a tiny branch that is normal. OM2 The second obtuse marginal branch is a tiny branch that is normal. OM3 The third obtuse marginal branch is a large branch vessel that is normal. Right Coronary The right coronary artery is normal in its proximal mid and distal portion. R PDA The right PDA is normal. RPLV The right posterior lateral LV branch is normal. Left Ventriculography Left Ventriculography was not performed. Ejection Fraction was 50-55% based off patient's Echocardiogram. Hemodynamics The aortic pressure is 119/70 mmHg with a mean of 43 mmHg. The left ventricular pressure is 121/2 mmHg with a mean of mmHg. The left ventricular end diastolic pressure is 8 mmHg. Conclusion 1. Normal coronary arteries. 2. Normal left ventricular end-[place] [address] CARDIAC CATH REPORT Name: BARNEY JONES Room: [facility]#: [id number] Admission: 08/12/19 Attend Phys: Hernandez Givens MD Discharge: Date of : 64 Report #: [id number] Recommendations 1. Continue current medical management. <ELECTRONICALLY SIGNED> By: Hernandez Givens MD, [facility] 08/12/19 1356 1356 1356Micmaddy Givens MD, FACC /INF
== END ==
LOC: M.CL 09:49
PROVIDERS: ATTEND Internal Medicine Cardiovascular Disease
DX: R07.9 Chest pain, unspecified (principal); I48.91 Unspecified atrial fibrillation; R94.31 Abnormal electrocardiogram [ECG] [EKG]; I11.0 Hypertensive heart disease with heart failure; I50.9 Heart failure, unspecified; Z79.899 Other long term (current) drug therapy; Z87.891 Personal history of nicotine dependence

== ENCOUNTER → 2020-06-02 | Outpatient (CLI) | payer MEDICAID ==
[2020-06-02 11:16] LABS: ALBUMIN 3.7 g/dL (3.4-5.0); CREATININE 1.3 mg/dL (0.6-1.3); POTASSIUM 3.8 mmol/L (3.5-5.1); TOTAL BILIRUBIN 0.3 mg/dL (<0.1-1.0); TOTAL PROTEIN 8.4 g/dL (6.4-8.2)
== END ==
LOC: M.LAB 10:32
PROVIDERS: ATTEND Registered Nurse
DX: I48.21 Permanent atrial fibrillation (principal); I50.22 Chronic systolic (congestive) heart failure

== ENCOUNTER → 2021-04-04 | Outpatient (CLI) | payer MEDICAID | LOC: M.LAB 14:09 | PROVIDERS: ATTEND Registered Nurse | DX: I48.20 Chronic atrial fibrillation, unspecified (principal) ==